=== PATIENT | male | born 1975 | race Caucasian/White ===

== ENCOUNTER 2023-12-22 12:06 | Observation (INO) | payer OTHER, SELFPAY ==
[2023-12-22] VITALS (8 sets, daily range): BP systolic 130–177; BP diastolic 82–114; PULSE 81–99; RESP 17–26; TEMP 36.3–36.9; O2SAT 89–97; BMI 20.3
--- NOTE | 2023-12-22 12:49 | EKG_ITS ---
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
--- NOTE | 2023-12-22 12:49 | DI.RAD.S_ITS ---
PROCEDURE: XR CHEST 1V INDICATIONS: Shortness of breath TECHNIQUE: One view of the chest was acquired. COMPARISON: None. FINDINGS: Surgical changes and devices: None. Lungs and pleura: There is severe diffuse basilar predominant interstitial/reticulonodular pulmonary opacity, of uncertain chronicity. No pleural effusions or pneumothorax. Mediastinum: Mediastinal contours appear normal. Heart size is normal. Bones and chest wall: No suspicious bony lesions. Overlying soft tissues appear unremarkable. IMPRESSION: Severe bilateral interstitial pulmonary opacity, consistent with edema and/or pneumonia superimposed on fibrosis. Dictated by: Jules Romero M.D. on 12/22/2023 at 13:33 Approved by: Jules Romero M.D. on 12/22/2023 at 13:34
[2023-12-22 13:26] LABS: Add Manual Diff / Slide Review NO; Basophils Absolute Auto 100 /uL (0-100); Basophils Percent Auto 0.7 % (0-2); Eosinophils Absolute Auto 100 /uL (0-450); Eosinophils Percent Auto 0.4 % (2-4); Hematocrit 50.6 % (41-53); Lymphocytes Absolute Auto 1400 /uL (1100-4500); Lymphocytes Percent Auto 12.6 % (25-40); Mean Corpuscular HGB Conc 33.5 % (30-36); Mean Corpuscular Hemoglobin 31.3 PG (26-34); Mean Corpuscular Volume 93.2 fL (80-100); Monocytes Absolute Auto 1200 /uL (0-900); Neutrophils Absolute Auto 8400 /uL (1500-7000); Neutrophils Percent Auto 75.3 % (50-75); Platelet Count 348 X10^3/uL (150-400); Red Blood Cell Count 5.43 X10^6/uL (4.5-5.9); Red Cell Distribution Width 14.4 % (11.6-14.8); White Blood Cell Count 11.2 X10^3/uL (4.5-11.0)
[2023-12-22 13:34] LABS: INR 1.2 (0.9-1.3)
[2023-12-22 13:37] LABS: Lactate (Lactic Acid) 1.7 mmol/L (0.7-2.1)
[2023-12-22 13:38] LABS: Alanine Aminotransferase 21 IU/L (<50); Albumin 3.3 g/dL (3.5-5.0); Albumin Globulin Ratio 1.2 (1.0-2.8); Alkaline Phosphatase 71 U/L (38-126); Aspartate Aminotransferase 25 IU/L (17-59); BUN Creatinine Ratio 14.3 (6-22); Bilirubin Total 0.9 mg/dL (0.2-1.3); Blood Urea Nitrogen 10 mg/dL (9-20); Calcium 8.6 mg/dL (8.4-10.2); Carbon Dioxide 28 mmol/L (22-32); Chloride 102 mmol/L (98-107); Estimated Glomerular Filt Rate > 60 mL/min (>60); Globulin 2.8 g/dL (1.7-4.1); Glucose 104 mg/dL (70-100); HEMOLYSIS 17 (0-50); Potassium 5.1 mmol/L (3.4-5.1); Sodium 135 mmol/L (137-145); Total Protein 6.1 g/dL (6.3-8.2)
[2023-12-22 13:49] LABS: NT-proBNP (BNP-Adult 18+) 3140 pg/mL (<125); Troponin I < 0.012 ng/mL (0.01-0.034)
[2023-12-22] MEDS: FUROSEMIDE 40 MG/4 ML VIAL IV (14:10)
--- NOTE | 2023-12-22 14:23 | ED.SOB ---
HPI - SOB/Dyspnea <Zandra May PA-C - Last Filed: 12/22/23 17:43> General Stated Complaint: SOB Time Seen by Provider: 12/22/23 12:59 Source: patient Mode of arrival: Ambulatory Limitations: no limitations History of Present Illness HPI Narrative: 48-year-old male with no reported past medical history presents to the ED with 2 years of worsening shortness of breath. Patient states he has not seen a doctor for the last 20 years, has noted onset of shortness of breath 2 years ago which has worsened gradually. Patient states that he went to an event in [place] 2 months ago, where he exerted himself more than usual and smoked more than usual which exacerbated his shortness of breath even further. Patient lives on [facility], states that it is expensive and difficult to get care which is why he has not seen a doctor so far. Patient is here with his who endorses that he has visibly worsened with respect to his shortness of breath. Patient denies chest pain, nausea, vomiting, abdominal pain, hematochezia, melena, dysuria, lightheadedness, dizziness, syncope. Patient does endorse an intermittent headache. Patient is a pack-a-day smoker for the last 28 years, states he has somewhat cut down over the last 2 years since his shortness of breath started. Cigarettes were hand rolled and unfiltered. Patient also consumes anywhere upwards of a six-pack of beer daily. Patient takes edible marijuana for sleep daily. No other drugs. 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 Related Data Home Medications Medication Instructions Recorded Confirmed No Known Home Medications 12/22/23 12/22/23 Allergies Allergy/AdvReac Type Severity Reaction Status Date / Time No Known Drug Allergies Allergy Verified 12/22/23 12:42 Review of Systems <Zandra May PA-C - Last Filed: 12/22/23 17:43> Constitutional Constitutional: Denies chills, Denies fatigue, Denies fever(s), Denies frequent falls, Reports headache(s), Denies lethargy and Denies weakness Eyes Eyes: Denies change in vision, Denies eye discharge, Denies irritation and Denies loss of vision ENT Ears, Nose, Mouth, and Throat: Denies change in voice, Denies dizziness, Reports headache(s), Denies neck pain, Denies sore throat and Denies throat swelling Cardiovascular Cardiovascular: Denies chest pain, Denies irregular heart rhythm, Denies lightheadedness, Denies palpitations, Reports dyspnea, Reports dyspnea on exertion and Denies orthopnea Respiratory Respiratory: Denies cough, Reports dyspnea, Reports dyspnea on exertion and Denies wheezing Gastrointestinal Gastrointestinal: Denies abdominal pain, Denies change in bowel habits, Denies diarrhea, Denies nausea and Denies vomiting Musculoskeletal Musculoskeletal: Denies neck pain and Denies numbness Integumentary/Breasts Skin/Breast: Denies pruritus, Denies erythema, Denies rash and Denies wounds Neurologic Neurologic: Denies behavioral changes, Denies confusion, Denies dizziness, Denies frequent falls, Reports headache(s), Denies loss of vision, Denies numbness and Denies weakness Psychiatric Psychiatric: Denies anxiety, Denies behavioral changes, Denies confusion, Denies depression, Denies homicidal ideation and Denies suicidal ideation Endocrine Endocrine: Denies fatigue, Denies flushing and Denies palpitations Hematologic/Lymphatic Hematologic/Lymphatic: Denies easy bruising Allergic/Immunologic Allergic/Immunologic: Denies urticaria, Denies throat swelling and Denies wheezing Patient History <Zandra May PA-C - Last Filed: 12/22/23 17:43> Social History household members: significant other Smoking Status: Former smoker alcohol intake: current Smoking Status: Current some day smoker tobacco type: cigarettes alcohol intake frequency: 3 or more drinks per day Alcohol type: beer Substance Use Type: marijuana Exam <Zandra May PA-C - Last Filed: 12/22/23 17:43> Narrative Exam Narrative: Const General:?cooperative, healthy appearing and comfortable [facility] Head:?normal to inspection Ears:?hearing grossly normal bilaterally Nose:?external nose normal Face and sinus:?normal facial exam and sinuses nontender Mouth:?oral mucosae normal Throat:?posterior oropharynx normal Eyes General:?appearance normal, both eyes and all related structures Neck Neck:?normal visual inspection and no lymphadenopathy noted Resp Effort & Inspection:? Patient appears to be short of breath while sitting and talking in the ED, with some effort of breathing Auscultation:?clear to auscultation bilaterally Cardio Rate:?regular rate Rhythm:?regular rhythm Lower Extremities with mild edema Neuro General:?patient alert, patient awake and patient oriented x3 Initial Vital Signs Initial Vital Signs: Vital Signs Temperature 98.5 F 12/22/23 12:43 Pulse Rate 99 H 12/22/23 12:43 Respiratory Rate 26 H 12/22/23 12:43 Blood Pressure 155/82 H 12/22/23 12:43 Pulse Oximetry 90 L 12/22/23 12:43 Oxygen Delivery Method Room Air 12/22/23 12:43 <Sara Magdaleno DO - Last Filed: 12/22/23 18:51> Initial Vital Signs Initial Vital Signs: Vital Signs Temperature 98.5 F 12/22/23 12:43 Pulse Rate 99 H 12/22/23 12:43 Respiratory Rate 26 H 12/22/23 12:43 Blood Pressure 155/82 H 12/22/23 12:43 Pulse Oximetry 90 L 12/22/23 12:43 Oxygen Delivery Method Room Air 12/22/23 12:43 Course <Zandra aMy PA-C - Last Filed: 12/22/23 17:43> Orders Ordered: ED Orders 12/22/23 12:49 XR chest 1V Stat EKG-12 Lead Stat Measure peak expiratory flow ONCE RT Consult Eval and Treat NOW 12/22/23 13:00 Complete Blood Count AUTO DIFF Stat Comprehensive Metabolic Panel Stat D Dimer Stat Lactate (Lactic Acid) Stat NT-proBNP (BNP-Adult 18+) Stat Prothrombin Time INR Stat Troponin I Stat 12/22/23 14:30 CT chest abd pel w con Stat 12/22/23 15:00 EC echo doppler complete Stat Acetaminophen (Acetaminophen 325 Mg Tablet) 650 mg PO Q6H PRN PRN Reason: Fever/Mild Pain (1-3) Al Hydrox/Mg Hydrox/Simethicone (Mag Hydrox/Alum/Simeth 30 Ml Udc) 30 ml PO Q6HR PRN PRN Reason: Dyspepsia Heparin Sodium (Porcine) (Heparin 5,000 Unit/Ml Vial) 5,000 unit SUBCUT BID KAYKAY Ibuprofen (Ibuprofen 600 Mg Tablet) 600 mg PO Q6HR PRN PRN Reason: Fever/Mild Pain (1-3) Naloxone HCl (Naloxone 0.4 Mg/Ml Vial) 0.2 mg IV Q2MIN PRN PRN Reason: Opiate Reversal Ondansetron HCl (Ondansetron 4 Mg/2 Ml Inj) 4 mg IV Q8HR PRN PRN Reason: Nausea And Vomiting Discontinued Medications Furosemide (Furosemide 40 Mg/4 Ml Vial) 40 mg IV NOW ONE Stop: 12/22/23 13:44 Last Admin: 12/22/23 14:10 Dose: 40 mg Documented By: AMAYA Vital Signs Vital signs: Vital Signs - 8 hr 12/22/23 12:43 12/22/23 13:10 12/22/23 13:36 Temperature 98.5 F Pulse Rate 99 H Respiratory Rate 26 H Blood Pressure 155/82 H Pulse Oximetry 90 L 89 L 92 Oxygen Delivery Method Room Air Room Air Nasal Cannula Oxygen Flow Rate 2 12/22/23 14:31 12/22/23 15:43 Temperature Pulse Rate 86 85 Respiratory Rate 20 22 Blood Pressure 147/89 H 177/84 H Pulse Oximetry 95 96 Oxygen Delivery Method Nasal Cannula Nasal Cannula Oxygen Flow Rate 3 4 <Sara Magdaleno, - Last Filed: 12/22/23 18:51> Orders Ordered: ED Orders 12/22/23 12:49 XR chest 1V Stat EKG-12 Lead Stat Measure peak expiratory flow ONCE RT Consult Eval and Treat NOW 12/22/23 13:00 Complete Blood Count AUTO DIFF Stat Comprehensive Metabolic Panel Stat D Dimer Stat Lactate (Lactic Acid) Stat NT-proBNP (BNP-Adult 18+) Stat Prothrombin Time INR Stat Troponin I Stat 12/22/23 14:30 CT chest abd pel w con Stat 12/22/23 15:00 EC echo doppler complete Stat Acetaminophen (Acetaminophen 325 Mg Tablet) 650 mg PO Q6H PRN PRN Reason: Fever/Mild Pain (1-3) Al Hydrox/Mg Hydrox/Simethicone (Mag Hydrox/Alum/Simeth 30 Ml Udc) 30 ml PO Q6HR PRN PRN Reason: Dyspepsia Heparin Sodium (Porcine) (Heparin 5,000 Unit/Ml Vial) 5,000 unit SUBCUT BID KAYKAY Ibuprofen (Ibuprofen 600 Mg Tablet) 600 mg PO Q6HR PRN PRN Reason: Fever/Mild Pain (1-3) Naloxone HCl (Naloxone 0.4 Mg/Ml Vial) 0.2 mg IV Q2MIN PRN PRN Reason: Opiate Reversal Ondansetron HCl (Ondansetron 4 Mg/2 Ml Inj) 4 mg IV Q8HR PRN PRN Reason: Nausea And Vomiting Discontinued Medications Furosemide (Furosemide 40 Mg/4 Ml Vial) 40 mg IV NOW ONE Stop: 12/22/23 13:44 Last Admin: 12/22/23 14:10 Dose: 40 mg Documented By: AMAYA Vital Signs Vital signs: Vital Signs - 8 hr 12/22/23 12:43 12/22/23 13:10 12/22/23 13:36 Temperature 98.5 F Pulse Rate 99 H Respiratory Rate 26 H Blood Pressure 155/82 H Pulse Oximetry 90 L 89 L 92 Oxygen Delivery Method Room Air Room Air Nasal Cannula Oxygen Flow Rate 2 12/22/23 14:31 12/22/23 15:43 Temperature Pulse Rate 86 85 Respiratory Rate 20 22 Blood Pressure 147/89 H 177/84 H Pulse Oximetry 95 96 Oxygen Delivery Method Nasal Cannula Nasal Cannula Oxygen Flow Rate 3 4 MDM - SOB/Dyspnea <Zandra May PA-C - Last Filed: 12/22/23 17:43> Lab Data 12/22/23 13:00 12/22/23 13:00 Labs: Lab Results 12/22/23 Range/Units 13:00 WBC 11.2 H (4.5-11.0) X10^3/uL RBC 5.43 (4.5-5.9) X10^6/uL Hgb 17.0 (13.5-17.5) g/dL Hct 50.6 (41-53) % MCV 93.2 (80-100) fL MCH 31.3 (26-34) PG MCHC 33.5 (30-36) % RDW 14.4 (11.6-14.8) % Plt Count 348 (150-400) X10^3/uL Neut % (Auto) 75.3 H (50-75) % Lymph % (Auto) 12.6 L (25-40) % Rankin % (Auto) 11.0 (3-14) % Eos % (Auto) 0.4 L (2-4) % Baso % (Auto) 0.7 (0-2) % Neut # (Auto) 8400 H (2697-5612) /uL Lymph # (Auto) 1400 (2156-0423) /uL Rankin # (Auto) 1200 H (0-900) /uL Eos # (Auto) 100 (0-450) /uL Baso # (Auto) 100 (0-100) /uL PT 14.0 H (9.4-12.5) SECONDS INR 1.2 (0.9-1.3) D-Dimer 1510 H (<500) ng/ml Sodium 135 L (137-145) mmol/L Potassium 5.1 (3.4-5.1) mmol/L Chloride 102 (98-107) mmol/L Carbon Dioxide 28 (22-32) mmol/L BUN 10 (9-20) mg/dL Creatinine 0.70 (0.66-1.25) mg/dL Estimated GFR > 60 (>60) mL/min BUN/Creatinine Ratio 14.3 (6-22) Glucose 104 H (70-100) mg/dL Lactate 1.7 (0.7-2.1) mmol/L Calcium 8.6 (8.4-10.2) mg/dL Total Bilirubin 0.9 (0.2-1.3) mg/dL AST 25 (17-59) IU/L ALT 21 (<50) IU/L Alkaline Phosphatase 71 (38-126) U/L Troponin I < 0.012 (0.01-0.034) ng/mL NT-Pro-B Natriuret Pep 3140 H (<125) pg/mL Total Protein 6.1 L (6.3-8.2) g/dL Albumin 3.3 L (3.5-5.0) g/dL Globulin 2.8 (1.7-4.1) g/dL Albumin/Globulin Ratio 1.2 (1.0-2.8) Urine Dip Bedside Urine Glucose Negative Bedside Urine Bilirubin - Negative Bedside Urine Ketone - Negative Urine Specific [place] 1.010 Bedside Urine Occult Blood - Negative Bedside Urine pH 6.5 Bedside Urine Protein - Negative Bedside Urine Urobilinogen - Negative Bedside Urine Nitrite - Negative Bedside Urine Leukocytes - Negative Esterase MDM Narrative Medical decision making narrative: 48-year-old male with no reported past medical history presents to the ED with 2 years of worsening shortness of breath. Concern for CHF versus pneumonia versus COPD versus emphysema versus PE versus URI versus other. Will obtain chest x-ray, EKG, labs, troponin, BNP, D-dimer. Troponin within normal limits. BNP elevated to 3140. All other labs unremarkable. Chest x-ray with severe bilateral interstitial pulmonary opacity, consistent with edema and/or or pneumonia superimposed on fibrosis. CT chest abdomen pelvis was obtained which shows severe pulmonary edema and small pleural effusions. 1.3 cm right adrenal nodule. Multiple sclerotic lesions throughout the spine and pelvis concerning for metastatic disease. No primary masses identified, although sclerotic lesions in his age group commonly caused by prostate cancer. Patient was started on 40 mg of Lasix IV. Patient put on 3 L of nasal cannula. Patient's SpO2 improved from the high 80s to low 90s to the high 90s with the oxygen and Lasix. An echocardiogram was also obtained, awaiting read. D-dimer elevated to 1510 could be related to malignancy. Consider CTPE. Big Data Developer Dr. Melton was consulted. Recommends admission, 40 mg Lasix IV b.i.d., Entresto 24-26 mg b.i.d. She would like to defer spironolactone and beta blockers at this time given that patient is decompensated. Hospitalist Dr. Chapman was consulted and he graciously accepts the patient for admission. Findings and plan discussed with patient and patient's . They verbalized understanding and are agreeable to the admission. <Sara Magdaleno, DO - Last Filed: 12/22/23 18:51> Lab Data Labs: Lab Results 12/22/23 Range/Units 13:00 WBC 11.2 H (4.5-11.0) X10^3/uL RBC 5.43 (4.5-5.9) X10^6/uL Hgb 17.0 (13.5-17.5) g/dL Hct 50.6 (41-53) % MCV 93.2 (80-100) fL MCH 31.3 (26-34) PG MCHC 33.5 (30-36) % RDW 14.4 (11.6-14.8) % Plt Count 348 (150-400) X10^3/uL Neut % (Auto) 75.3 H (50-75) % Lymph % (Auto) 12.6 L (25-40) % Rankin % (Auto) 11.0 (3-14) % Eos % (Auto) 0.4 L (2-4) % Baso % (Auto) 0.7 (0-2) % Neut # (Auto) 8400 H (1642-2222) /uL Lymph # (Auto) 1400 (0651-0881) /uL Rankin # (Auto) 1200 H (0-900) /uL Eos # (Auto) 100 (0-450) /uL Baso # (Auto) 100 (0-100) /uL PT 14.0 H (9.4-12.5) SECONDS INR 1.2 (0.9-1.3) D-Dimer 1510 H (<500) ng/ml Sodium 135 L (137-145) mmol/L Potassium 5.1 (3.4-5.1) mmol/L Chloride 102 (98-107) mmol/L Carbon Dioxide 28 (22-32) mmol/L BUN 10 (9-20) mg/dL Creatinine 0.70 (0.66-1.25) mg/dL Estimated GFR > 60 (>60) mL/min BUN/Creatinine Ratio 14.3 (6-22) Glucose 104 H (70-100) mg/dL Lactate 1.7 (0.7-2.1) mmol/L Calcium 8.6 (8.4-10.2) mg/dL Total Bilirubin 0.9 (0.2-1.3) mg/dL AST 25 (17-59) IU/L ALT 21 (<50) IU/L Alkaline Phosphatase 71 (38-126) U/L Troponin I < 0.012 (0.01-0.034) ng/mL NT-Pro-B Natriuret Pep 3140 H (<125) pg/mL Total Protein 6.1 L (6.3-8.2) g/dL Albumin 3.3 L (3.5-5.0) g/dL Globulin 2.8 (1.7-4.1) g/dL Albumin/Globulin Ratio 1.2 (1.0-2.8) Urine Dip Bedside Urine Glucose Negative Bedside Urine Bilirubin - Negative Bedside Urine Ketone - Negative Urine Specific [place] 1.010 Bedside Urine Occult Blood - Negative Bedside Urine pH 6.5 Bedside Urine Protein - Negative Bedside Urine Urobilinogen - Negative Bedside Urine Nitrite - Negative Bedside Urine Leukocytes - Negative Esterase ECG Data Attestation: I personally reviewed and interpreted this ECG as follows: Interpretation: Sinus rhythm rate 89 IL 150 QRS of 104 QTC 474, inverted T-waves in V1 through V3 no acute ST elevation. Discharge Plan Departure Patient Disposition: Admitted As Inpatient Clinical Impression: CHF (congestive heart failure) Qualifiers: Heart failure type: unspecified Heart failure chronicity: unspecified Qualified Code(s): I50.9 - Heart failure, unspecified Admit Date/Time: 12/22/23 15:48 Admit Provider: Alexander Chapman ED Sign-out <Sara Magdaleno DO - Last Filed: 12/22/23 18:51> Cosign ED Attending Cosignature Attestation: Patient was also seen and evaluated by myself patient was hypoxic, tachycardic, tachypneic, patient states he has had slowly worsening shortness of breath over some period of time that is worsened most recently. Was seen work of breathing had improved after O2. Workup was reviewed by myself. Patient appears to have CHF but also has changes consistent with malignancy with multiple sclerotic lesions throughout the spine and pelvis. Patient has small bilateral pleural effusions confluence centrilobular emphysema with superimposed bronchial thickening and smooth interstitial thickening with central mild ground-glass. Echo was ordered. Patient received O2, Lasix and was admitted to the hospitalist.
--- NOTE | 2023-12-22 14:30 | DI.CT.S_ITS ---
PROCEDURE: CT CHEST ABD PEL W CON INDICATIONS: SOB, abd pain TECHNIQUE: After the administration of intravenous contrast, 5 mm thick sections acquired from the lung apices to the symphysis. 5 mm coronal and sagittal reformats were performed, with additional 7 mm MIP reformats through the lungs. For radiation dose reduction, the following was used: automated exposure control, adjustment of mA and/or kV according to patient size. COMPARISON: None. FINDINGS: Image quality: Excellent. CHEST: Lower Neck: No enlarged lymph nodes. Thyroid: No thyroid nodules which require sonographic follow up, per consensus guidelines. Axillae: No enlarged lymph nodes. Chest Wall: Unremarkable. Lungs and Pleura: Small pleural effusions.. Confluent centrilobular emphysema. Superimposed bronchial thickening and smooth interstitial thickening with central mild ground-glass. Heart: Heart size is enlarged. No pericardial effusion. Thoracic Vessels: The aorta and pulmonary arteries demonstrate normal size. Mediastinum and Digna: No enlarged lymph nodes. Esophagus: No wall thickening. No hiatal hernia. ABDOMEN: Liver: Hepatomegaly. Gallbladder: Diffuse gallbladder wall thickening, likely due to cardiogenic factors. Gallbladder is contracted. Biliary ducts: No biliary dilation. Pancreas: No ductal dilation. Spleen: Size is within normal limits. Adrenal Glands: 1.3 centimeter right adrenal nodule. Kidneys and Ureters: No hydronephrosis. No solid mass. No complex renal cystic lesion which requires follow up. Stomach and Bowel: Normal colonic caliber, without significant wall thickening. Colonic diverticulosis without evidence of diverticulitis. Normal appendix. Peritoneum: No abnormal intraperitoneal fluid. No free air. Ventral Wall: No significant ventral hernia. Abdominal Nodes: No retroperitoneal or mesenteric adenopathy by size criteria. Vessels: Aorta and inferior vena cava are normal in size. PELVIS: Pelvic Organs: Unremarkable. Bladder: No bladder wall thickening, accounting for underdistention. Pelvic Nodes: No enlarged lymph nodes. Miscellaneous: No inguinal hernias are seen. Bones: Multiple dense bony lesions within the pelvis and spine. No soft tissue component. IMPRESSION: Severe pulmonary edema and small pleural effusions. 1.3 centimeter right adrenal nodule. Recommend dedicated outpatient CT or MRI for characterization (adrenal mass protocol). Multiple sclerotic lesions throughout the spine and pelvis, concerning for metastatic disease. Consider correlation with bone scintigraphy. No primary mass is identified, although sclerotic lesions in this age group are commonly caused by prostate cancer. Dictated by: Alvino oCle M.D. on 12/22/2023 at 14:47 Approved by: Alvino Cole M.D. on 12/22/2023 at 14:53
--- NOTE | 2023-12-22 15:00 | DI.ECHO.S_ITS ---
[facility] : : [address] : : [place] : : [id number] : : Phone: [phone] Echocardiogram Report + + :Name: JU [facility] Study Date: 12/22/2023 Height: 72 in : :Hospital ReadingLocation: Weight: 150 lb: : Gender: Male BSA: 1.9 m2 : :: 1975 Age: 48 yrs : :Reason For Study: NEW CONGESTIVE HEART FAILURE : :Ordering Physician: CURLY LAND Performed By: Martine Eason : :Referring: CURLY LAND : + + Interpretation Summary 1. The left ventricular contractility is mildly compromised. Estimated ejection fraction is approximately 45 to 50% with hypokinesis of the septum. No LVH. Grade 1 diastolic dysfunction. 2. The right ventricular contractility is moderately compromised. The interventricular septum appears to be mildly flattened suggestive of a pressure overloaded state. 3. There is right atrial and right ventricular enlargement. The left atrium and left ventricle are of normal size. 4. Mild to moderate tricuspid regurgitation noted with estimated pulmonary systolic artery pressure of 75 mmHg. 5. Trace to mild mitral regurgitation. 6. No obvious intracardiac shunts. 7. No obvious intracardiac masses nor thrombi. 8. No hemodynamically significant pericardial effusion. 9. Elevated right-sided filling pressures. Conclusion: Biventricular systolic dysfunction with severe pulmonary hypertension. Procedure: A two-dimensional transthoracic echocardiogram with color flow and Doppler was performed. The study quality was technically adequate. There is no prior echocardiogram noted for this patient. The patient was in sinus rhythm with heart rates between 84-92 bpm during the exam. Left Ventricle: The left ventricle is normal in size and wall thickness. The ejection fraction is estimated to be 45-50%. Right Ventricle: The right ventricle is severely dilated. Right ventricular systolic function is moderately reduced. Atria: The left atrial size is normal. The right atrium is mildly dilated. There is no Doppler evidence for an interatrial shunt. Mitral Valve: The mitral valve leaflets appear mildly thickened, but open well. There is borderline mitral valve prolapse. There is mild mitral regurgitation. Aortic Valve: The aortic valve is trileaflet. The aortic valve opens well. There is no aortic valve stenosis. No aortic regurgitation is present. Tricuspid Valve: The tricuspid valve leaflets are thin and pliable. There is mild to moderate tricuspid regurgitation. The right ventricular systolic pressure is estimated to be at least 75 mmHg based on an estimated right atrial pressure of 8 mm Hg. Pulmonic Valve: The pulmonic valve leaflets are thin and pliable; valve motion is normal. There is mild pulmonic regurgitation. Great Vessels: The aortic root is normal size. The dimensions of the ascending aorta are normal. The IVC is dilated (diameter is greater than 2.1 cm) yet it collapses greater than 50% with a sniff. This suggests a right atrial pressure of 8 mm Hg. Pericardium/ Pleura There is no pericardial effusion. There is no pleural effusion. MMode/2D Measurements & Calculations LVIDd: 4.6 cm LVOT diam: 2.2 cm LVIDs: 3.5 cm Ao root diam: 3.5 cm FS: 22.5 % asc Aorta Diam: 3.1 cm IVSd: 0.94 cm LVPWd: 0.84 cm LV avila. diameter/BSA (cm/m^2): 2.4 LV sys. diameter/BSA (cm/m^2): 1.9 LA A2 area: 13.6 cm2 RA long axis: 5.0 cm LA A4 area: 15.8 cm2 RA area: 19.3 cm2 LA length (vol): 5.1 cm RA vol: 63.0 ml LA vol: 35.8 ml RA : 33.4 ml/m2 LA vol index: 19.0 ml/m2 IVC diam: 2.2 cm RVDd major: 9.7 cm RVD1 (basal): 5.1 cm RVD2 (mid): 4.0 cm TAPSE: 1.7 cm Doppler Measurements & Calculations Ao V2 max: 96.1 cm/sec LVOT Max Scott: 78.4 cm/sec Ao V2 mean: 74.1 cm/sec LV V1 max P.5 mmHg Ao max P.7 mmHg LV V1 VTI: 13.0 cm Ao mean P.3 mmHg MARYLU(I,D): 3.0 cm2 Ao V2 VTI: 16.3 cm MARYLU(V,D): 3.1 cm2 sev ratio: 0.80 MARYLU indexed to BSA (cm^2/m^2): 1.6 MV E max scott: 62.4 cm/sec TR max scott: 409.6 cm/sec MV A max scott: 67.3 cm/sec TR max P.1 mmHg MV E/A: 0.93 PA V2 max: 92.5 cm/sec Med Peak E' Scott: 3.6 cm/sec PA V2 mean: 58.4 cm/sec E/E' med: 17.4 PA mean P.5 mmHg Lat Peak E' Scott: 8.4 cm/sec PA pr(Accel): 52.0 mmHg E/E' lat: 7.5 E/e' average: 12.4 MV dec time: 0.22 sec SV(LVOT): 49.4 ml Reading Physician:
[2023-12-22 15:46] LABS: D Dimer 1510 ng/ml (<500)
--- NOTE | 2023-12-22 15:56 | PM.HP.1 ---
History of Present Illness History of Present Illness Date Patient Seen: 12/22/23 Chief complaint: SOB Narrative: From ED provider: 48-year-old male with no reported past medical history presents to the ED with 2 years of worsening shortness of breath. Patient states he has not seen a doctor for the last 20 years, has noted onset of shortness of breath 2 years ago which has worsened gradually. Patient states that he went to an event in [place] 2 months ago, where he exerted himself more than usual and smoked more than usual which exacerbated his shortness of breath even further. Patient lives on [facility], states that it is expensive and difficult to get care which is why he has not seen a doctor so far. Patient is here with his who endorses that he has visibly worsened with respect to his shortness of breath. Patient denies chest pain, nausea, vomiting, abdominal pain, hematochezia, melena, dysuria, lightheadedness, dizziness, syncope. Patient does endorse an intermittent headache. Patient is a pack-a-day smoker for the last 28 years, states he has somewhat cut down over the last 2 years since his shortness of breath started. Cigarettes were hand rolled and unfiltered. Patient also consumes anywhere upwards of a six-pack of beer daily. Patient takes edible marijuana for sleep daily. No other drugs. 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 Additional information: He has a long history of smoking in his had subacute progression of his dyspnea on exertion for months to maybe even longer. He was not having any cough and not really having orthopnea. His primary symptoms are dyspnea on exertion. He was no leg edema either. He denies any chest pain with exertion. He drinks about 6 beers a day on the average, he smokes about a pack of cigarettes a day. The patient has not seen a doctor in about 20 years. He was found to have biventricular systolic dysfunction on an echo today and has evidence of severe pulmonary hypertension as well as a negative CT PA. He likely has a severe emphysema relating to his tobacco use. The patient was started on diuretics in the emergency department. He was an oximeter in his had readings in the 80s for the past several months intermittently. He denies any abdominal pain or weight loss. [facility] Social History household members: significant other Smoking Status: Former smoker alcohol intake: current Meds Home Medications and Allergies Home Medications Medication Instructions Recorded Confirmed Type No Known Home Medications 12/22/23 12/22/23 History Allergies Allergy/AdvReac Type Severity Reaction Status Date / Time No Known Drug Allergies Allergy Verified 12/22/23 12:42 Review of Systems Review of Systems Narrative: All else reviewed and otherwise unremarkable except as noted in the history and physical. Exam Vital Signs (past 8 hours): - 12/22/23 12:43 12/22/23 13:10 12/22/23 13:36 Temperature 98.5 F Pulse Rate 99 H Respiratory Rate 26 H Blood Pressure 155/82 H Pulse Oximetry 90 L 89 L 92 Oxygen Delivery Method Room Air Room Air Nasal Cannula Oxygen Flow Rate 2 12/22/23 14:31 12/22/23 15:43 Temperature Pulse Rate 86 85 Respiratory Rate 20 22 Blood Pressure 147/89 H 177/84 H Pulse Oximetry 95 96 Oxygen Delivery Method Nasal Cannula Nasal Cannula Oxygen Flow Rate 3 4 Oxygen Delivery Method Nasal Cannula Oxygen Flow Rate 4 Narrative Exam Narrative: NAD, alert and oriented, fluent speech, calm. Normocephalic skull, EOMI, anicteric sclera, symmetric pupils. Oropharynx unremarkable, no droop. Neck supple, midline trachea, no adenopathy. Lungs clear, normal rate and effort. He was globally diminished breath sounds. No overt wheezing. Veins are flat. Heart regular, no murmur gallop or rub. Abdomen is soft, non distended and non tender. Extremities are free of edema. Skin is free of rash or lesions. Joints are not swollen or deformed. Judgment appears to be normal. Objective ECG Impression: Normal sinus rhythm Possible Left atrial enlargement Incomplete right bundle branch block Right ventricular hypertrophy with repolarization abnormality Nonspecific T wave abnormality Prolonged QT Imaging Chest x-ray: Radiologist's impression: Severe bilateral interstitial pulmonary opacity, consistent with edema and/or pneumonia superimposed on fibrosis. CT scan - chest: Radiologist's impression: MPRESSION: Severe pulmonary edema and small pleural effusions. 1.3 centimeter right adrenal nodule. Recommend dedicated outpatient CT or MRI for characterization (adrenal mass protocol). Multiple sclerotic lesions throughout the spine and pelvis, concerning for metastatic disease. Consider correlation with bone scintigraphy. No primary mass is identified, although sclerotic lesions in this age group are commonly caused by prostate cancer. Echo: Radiologist's impression: 1. The left ventricular contractility is mildly compromised. Estimated ejection fraction is approximately 45 to 50% with hypokinesis of the septum. No LVH. Grade 1 diastolic dysfunction. 2. The right ventricular contractility is moderately compromised. The interventricular septum appears to be mildly flattened suggestive of a pressure overloaded state. 3. There is right atrial and right ventricular enlargement. The left atrium and left ventricle are of normal size. 4. Mild to moderate tricuspid regurgitation noted with estimated pulmonary systolic artery pressure of 75 mmHg. 5. Trace to mild mitral regurgitation. 6. No obvious intracardiac shunts. 7. No obvious intracardiac masses nor thrombi. 8. No hemodynamically significant pericardial effusion. 9. Elevated right-sided filling pressures. Conclusion: Biventricular systolic dysfunction with severe pulmonary hypertension. Labs 12/22/23 13:00 12/22/23 13:00 Labs: Laboratory Results - last 24 hr 12/22/23 13:00 WBC 11.2 H RBC 5.43 Hgb 17.0 Hct 50.6 MCV 93.2 MCH 31.3 MCHC 33.5 RDW 14.4 Plt Count 348 Neut % (Auto) 75.3 H Lymph % (Auto) 12.6 L [place] % (Auto) 11.0 Eos % (Auto) 0.4 L Baso % (Auto) 0.7 Neut # (Auto) 8400 H Lymph # (Auto) 1400 [place] # (Auto) 1200 H Eos # (Auto) 100 Baso # (Auto) 100 PT 14.0 H INR 1.2 D-Dimer 1510 H Sodium 135 L Potassium 5.1 Chloride 102 Carbon Dioxide 28 BUN 10 Creatinine 0.70 Estimated GFR > 60 BUN/Creatinine Ratio 14.3 Glucose 104 H Lactate 1.7 Calcium 8.6 Total Bilirubin 0.9 AST 25 ALT 21 Alkaline Phosphatase 71 Troponin I < 0.012 NT-Pro-B Natriuret Pep 3140 H Total Protein 6.1 L Albumin 3.3 L Globulin 2.8 Albumin/Globulin Ratio 1.2 Assessment & Plan Assessment & Plan narrative: 1. Acute CHF (biventricular systolic), present on admission and active. 2. Acute hypoxic respiratory failure, present on admission and active. 3. Sclerotic osseous lesions, present on admission and active. 4. Severe pulmonary hypertension, present on admission and active PLAN: -diurese with Lasix 40 IV q.12. -serial troponins. -echo. -screening PSA. -started Entresto. Full resuscitation. is proxy decision maker. Admitted as observation status, 1 night stay is anticipated. Time-Based Coding :: 40 min spent with patient and on the chart (including review of chart, obtaining history, exam, reviewing outside data, placing orders, documenting exam and treatment plan, and counseling patient) on 12/21. Quality MIPS - Admit I confirm the patient?s Advance Care Plan is present, Code status is documented, Surrogate decision maker is in patient?s record [If Yes, STOP here]: Yes MIPS - Meds 'Current medications' to include all prescriptions, [id number] products, herbals, cannabis/cannabidiol products, and vitamin/mineral/dietary (nutritional) supplements. I have utilized all available resources to obtain, update, or review the patient?s current medications. [If Yes, STOP here]: Yes
[2023-12-22 17:10] LABS: Troponin I 0.016 ng/mL (0.01-0.034)
[2023-12-22] MEDS: IBUPROFEN 600 MG TABLET PO (18:52)
[2023-12-22] MEDS: HEPARIN 5,000 UNIT/ML VIAL 5000 UNIT SUBCUT (21:53)
[2023-12-23] VITALS (9 sets, daily range): BP systolic 97–136; BP diastolic 70–88; PULSE 75–88; RESP 16–19; TEMP 36.2–36.6; O2SAT 91–97
[2023-12-23] MEDS: IBUPROFEN 600 MG TABLET PO ×3 (03:25→17:27)
[2023-12-23 06:12] LABS: Add Manual Diff / Slide Review NO; Basophils Absolute Auto 100 /uL (0-100); Basophils Percent Auto 0.6 % (0-2); Eosinophils Absolute Auto 100 /uL (0-450); Eosinophils Percent Auto 0.9 % (2-4); Hematocrit 50.3 % (41-53); Lymphocytes Absolute Auto 1400 /uL (1100-4500); Lymphocytes Percent Auto 12.6 % (25-40); Mean Corpuscular HGB Conc 33.7 % (30-36); Mean Corpuscular Hemoglobin 31.5 PG (26-34); Mean Corpuscular Volume 93.5 fL (80-100); Monocytes Absolute Auto 900 /uL (0-900); Monocytes Percent Auto 7.8 % (3-14); Neutrophils Absolute Auto 8900 /uL (1500-7000); Neutrophils Percent Auto 78.1 % (50-75); Platelet Count 328 X10^3/uL (150-400); Red Blood Cell Count 5.38 X10^6/uL (4.5-5.9); White Blood Cell Count 11.4 X10^3/uL (4.5-11.0)
[2023-12-23 06:34] LABS: BUN Creatinine Ratio 13.6 (6-22); Blood Urea Nitrogen 11 mg/dL (9-20); Calcium 8.3 mg/dL (8.4-10.2); Carbon Dioxide 33 mmol/L (22-32); Chloride 99 mmol/L (98-107); Estimated Glomerular Filt Rate > 60 mL/min (>60); Glucose 120 mg/dL (70-100); HEMOLYSIS < 15 (0-50); Potassium 4.2 mmol/L (3.4-5.1); Sodium 134 mmol/L (137-145)
[2023-12-23] MEDS: FUROSEMIDE 40 MG/4 ML VIAL IV ×2 (08:28→13:56)
[2023-12-23] MEDS: HEPARIN 5,000 UNIT/ML VIAL 5000 UNIT SUBCUT ×2 (08:28→20:49)
--- NOTE | 2023-12-23 10:53 | DI.CT.S_ITS ---
PROCEDURE: CT CERVICAL SPINE WO CON INDICATIONS: Neck pain and possible bone mets TECHNIQUE: Noncontrast 3 mm thick sections acquired from the skull base to the T4 level. Sagittal and coronal reformats were then constructed. For radiation dose reduction, the following was used: automated exposure control, adjustment of mA and/or kV according to patient size. COMPARISON: [facility], CT, CT CHEST ABD PEL W CON, 12/22/2023, 13:46. [facility], CT, CT HEAD/BRAIN WO CON, 12/23/2023, 11:14. FINDINGS: Image quality: Excellent. Bones: No fractures or dislocations. Visualized superior ribs are intact. Bony sclerosis can be seen involving there is of the visualized calvarium as well as the C4 vertebral body. Underlying degenerative changes are seen. Soft tissues: Prevertebral soft tissues are normal in thickness. No paravertebral hematomas. No apical pneumothoraces. IMPRESSION: Bony sclerosis can be seen, most notably within the C4 vertebral body. The appearance is suspicious for metastatic disease. Dictated by: Walter Duffy M.D. on 12/23/2023 at 10:35 Approved by: Walter Duffy M.D. on 12/23/2023 at 10:36
--- NOTE | 2023-12-23 10:53 | DI.CT.S_ITS ---
PROCEDURE: CT HEAD/BRAIN WO CON INDICATIONS: headache TECHNIQUE: Noncontrast 4.5 mm thick angled axial sections acquired from the foramen magnum to the vertex, with coronal and sagittal reformats. For radiation dose reduction, the following was used: automated exposure control, adjustment of mA and/or kV according to patient size. COMPARISON: [facility], CT, CT CERVICAL SPINE WO CON, 12/23/2023, 11:14. FINDINGS: Image quality: Diagnostic. CSF spaces: Basal cisterns are patent. There is an arachnoid cyst seen along the posterior aspect of the posterior fossa. Ventricles are normal in size and shape. Brain: No midline shift. No intracranial masses or hemorrhage. Rivas-white matter interface is normal. Skull and face: General areas of abnormal bony sclerosis can be seen involving the calvarium. Calvarium and visualized facial bones are intact, without suspicious lesions. Sinuses: Mild mucosal thickening can be seen within the sphenoid sinuses. Minimal mucosal thickening can be seen elsewhere within the paranasal sinuses. IMPRESSION: Several areas of bony sclerosis can be seen involving the calvarium, which are highly suspicious for metastatic disease. To the limits of this noncontrast study, no findings of intracranial masses or mass effect can be seen. No acute intracranial hemorrhage is seen. Focal sphenoid sinus disease noted. Dictated by: Walter Duffy M.D. on 12/23/2023 at 10:31 Approved by: Walter Duffy M.D. on 12/23/2023 at 10:32
--- NOTE | 2023-12-23 10:54 | PM.PN.1 ---
Subjective Subjective Interval history: S: His breathing feels little bit better today. He has a headache for which has been ongoing for 10 days and a lot of neck pain and stiffness. This is relatively unusual for him. No leg edema. PSA is pending. Exam Vital Signs (past 8 hours): - 12/23/23 05:30 12/23/23 09:35 Temperature 97.6 F Pulse Rate 77 Respiratory Rate 17 Blood Pressure 136/88 Pulse Oximetry 97 92 Oxygen Flow Rate 1.5 1 Oxygen Delivery Method Nasal Cannula Oxygen Flow Rate 1 Narrative Exam Narrative: NAD, alert and oriented. Fluent speech. Lungs are clear, normal rate and effort. Heart is regular, no murmur gallop or rub. Abdomen is soft, non distended. Extremities are free of edema. Objective Imaging Echo: Radiologist's impression: Interpretation Summary 1. The left ventricular contractility is mildly compromised. Estimated ejection fraction is approximately 45 to 50% with hypokinesis of the septum. No LVH. Grade 1 diastolic dysfunction. 2. The right ventricular contractility is moderately compromised. The interventricular septum appears to be mildly flattened suggestive of a pressure overloaded state. 3. There is right atrial and right ventricular enlargement. The left atrium and left ventricle are of normal size. 4. Mild to moderate tricuspid regurgitation noted with estimated pulmonary systolic artery pressure of 75 mmHg. 5. Trace to mild mitral regurgitation. 6. No obvious intracardiac shunts. 7. No obvious intracardiac masses nor thrombi. 8. No hemodynamically significant pericardial effusion. 9. Elevated right-sided filling pressures. Conclusion: Biventricular systolic dysfunction with severe pulmonary hypertension. Labs 12/23/23 05:21 12/23/23 05:21 Labs: Laboratory Results - last 24 hr 12/22/23 12/22/23 12/23/23 13:00 16:30 05:21 WBC 11.2 H 11.4 H RBC 5.43 5.38 Hgb 17.0 17.0 Hct 50.6 50.3 MCV 93.2 93.5 MCH 31.3 31.5 MCHC 33.5 33.7 RDW 14.4 14.0 Plt Count 348 328 Neut % (Auto) 75.3 H 78.1 H Lymph % (Auto) 12.6 L 12.6 L [place] % (Auto) 11.0 7.8 Eos % (Auto) 0.4 L 0.9 L Baso % (Auto) 0.7 0.6 Neut # (Auto) 8400 H 8900 H Lymph # (Auto) 1400 1400 [place] # (Auto) 1200 H 900 Eos # (Auto) 100 100 Baso # (Auto) 100 100 PT 14.0 H INR 1.2 D-Dimer 1510 H Sodium 135 L 134 L Potassium 5.1 4.2 Chloride 102 99 Carbon Dioxide 28 33 H BUN 10 11 Creatinine 0.70 0.81 Estimated GFR > 60 > 60 BUN/Creatinine Ratio 14.3 13.6 Glucose 104 H 120 H Lactate 1.7 Calcium 8.6 8.3 L Total Bilirubin 0.9 AST 25 ALT 21 Alkaline Phosphatase 71 Troponin I < 0.012 0.016 NT-Pro-B Natriuret Pep 3140 H Total Protein 6.1 L Albumin 3.3 L Globulin 2.8 Albumin/Globulin Ratio 1.2 PFSH Social History household members: significant other Smoking Status: Former smoker alcohol intake: current Assessment & Plan Assessment & Plan narrative: 1. Acute CHF (biventricular systolic), present on admission and active. 2. Acute hypoxic respiratory failure, present on admission and active. 3. Sclerotic osseous lesions, present on admission and active. 4. Severe pulmonary hypertension, present on admission and active 5. Subacute neck pain and headache, which is relatively new and unusual for him. Present on admission and active. PLAN: -continue diuresis, start CELSO inhibitor. Start beta nikhil. -awaiting PSA results. -CT cervical spine, reason as neck pain and possible bony Mets. -CT brain, reason is headache and possible Mets. JULIANN is December 23. Likely home. Time-Based Coding :: [TOTAL MINUTES] spent with patient and on the chart (including review of chart, obtaining history, exam, reviewing outside data, placing orders, documenting exam and treatment plan, and counseling patient) on [DATE]. Quality VTE Deep Vein Thrombosis/Pulmonary Embolism Present on Admission: No
--- NOTE | 2023-12-23 14:35 | CM.DANOTE ---
DCP Assessment note pt is a 48yo M here under the care of the hospitalist team under OBS status, is SOB. PCP Hasn't been to a doctor in 20years. [employer] provided list of PCPs that take his ins and accepting new pts. Payer [employer] and self pay [employer] reviewed EMR. Per chart, likely to dc tomorrow. breathing better today. [employer] IN[employer]CTOR met with pt in room. Confirms lives with spouse Odilia on [facility]. is normal indep at baseline. Appreciate list of PCPs on [place]. Does not want to dc home with oxygen. Inquired about medical boarding pass, report will attempt to get reservation when dc date is known but if unable to get res is hopeful for boarding pass. CM agreed to f/u with pt tomorrow on boarding pass need. Pt claims has ID with him. P: anticipate home tomorrow with spouse to transport. f/u for boarding pass need. OP f/u with new PCP recommended. CM team will continue to follow as needed GIRISH Pittman Discharge Planning/Care Management CM Discharge Assessment Start: 12/23/23 14:34 Freq: Status: Active Protocol: Document 12/23/23 14:34 (Rec: 12/23/23 14:35 [id number]) Discharge Planning Assessment Assigned Exhibit Builder GIRISH Menendez DPOA/Assigned Designee Name aldair Hartley Contact Information [phone] Advance Directives? No History Provided By Patient Prior Living Arrangements House Household Members significant other Type of transporation used prior to Drives own vehicle admit Independent with ADL's Yes Is patient alert and oriented? Yes Discharge Plan Home Transportation Arrangement spouse in POV Referrals Initiated None needed Review Status In Process Please Provide Date Initial DC 12/23/23 Assessment Was Performed Next Review Type Continued Stay Review
[2023-12-24] VITALS: BP 140/86; PULSE 75; RESP 19; TEMP 36.2; O2SAT 95
[2023-12-24] MEDS: IBUPROFEN 600 MG TABLET PO ×2 (00:13→08:18)
[2023-12-24] MEDS: FUROSEMIDE 40 MG/4 ML VIAL IV ×2 (00:22→12:34)
[2023-12-24 04:00] VITALS: BP 135/95; PULSE 77; RESP 18; TEMP 36.4; O2SAT 89
[2023-12-24 05:23] LABS: Add Manual Diff / Slide Review NO; Basophils Absolute Auto 100 /uL (0-100); Basophils Percent Auto 1.2 % (0-2); Eosinophils Absolute Auto 200 /uL (0-450); Eosinophils Percent Auto 1.8 % (2-4); Hematocrit 54.2 % (41-53); Hemoglobin 18.2 g/dL (13.5-17.5); Lymphocytes Absolute Auto 2100 /uL (1100-4500); Lymphocytes Percent Auto 20.6 % (25-40); Mean Corpuscular HGB Conc 33.5 % (30-36); Mean Corpuscular Hemoglobin 31.2 PG (26-34); Mean Corpuscular Volume 93.1 fL (80-100); Monocytes Absolute Auto 1300 /uL (0-900); Monocytes Percent Auto 12.9 % (3-14); Neutrophils Absolute Auto 6500 /uL (1500-7000); Neutrophils Percent Auto 63.5 % (50-75); Platelet Count 352 X10^3/uL (150-400); Red Blood Cell Count 5.82 X10^6/uL (4.5-5.9); Red Cell Distribution Width 14.2 % (11.6-14.8); White Blood Cell Count 10.3 X10^3/uL (4.5-11.0)
[2023-12-24 05:51] LABS: BUN Creatinine Ratio 18.8 (6-22); Blood Urea Nitrogen 16 mg/dL (9-20); Calcium 8.6 mg/dL (8.4-10.2); Carbon Dioxide 36 mmol/L (22-32); Chloride 96 mmol/L (98-107); Estimated Glomerular Filt Rate > 60 mL/min (>60); Glucose 95 mg/dL (70-100); Sodium 134 mmol/L (137-145)
[2023-12-24 05:52] LABS: HEMOLYSIS 15 (0-50); Potassium 3.7 mmol/L (3.4-5.1)
[2023-12-24 07:00] VITALS: O2SAT 94
[2023-12-24 08:00] VITALS: BP 96/47; PULSE 74; RESP 10; TEMP 36; O2SAT 97
[2023-12-24] MEDS: HEPARIN 5,000 UNIT/ML VIAL 5000 UNIT SUBCUT (08:18)
--- NOTE | 2023-12-24 11:48 | P.DS_ITS ---
History of Present Illness History of Present Illness Chief complaint: SOB Narrative: From ED provider: 48-year-old male with no reported past medical history presents to the ED with 2 years of worsening shortness of breath. Patient states he has not seen a doctor for the last 20 years, has noted onset of shortness of breath 2 years ago which has worsened gradually. Patient states that he went to an event in [place] 2 months ago, where he exerted himself more than usual and smoked more than usual which exacerbated his shortness of breath even further. Patient lives on [facility], states that it is expensive and difficult to get care which is why he has not seen a doctor so far. Patient is here with his who endorses that he has visibly worsened with respect to his shortness of breath. Patient denies chest pain, nausea, vomiting, abdominal pain, hematochezia, melena, dysuria, lightheadedness, dizziness, syncope. Patient does endorse an intermittent headache. Patient is a pack-a-day smoker for the last 28 years, states he has somewhat cut down over the last 2 years since his shortness of breath started. Cigarettes were hand rolled and unfiltered. Patient also consumes anywhere upwards of a six-pack of beer daily. Patient takes edible marijuana for sleep daily. No other drugs. 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 Additional information: He has a long history of smoking in his had subacute progression of his dyspnea on exertion for months to maybe even longer. He was not having any cough and not really having orthopnea. His primary symptoms are dyspnea on exertion. He was no leg edema either. He denies any chest pain with exertion. He drinks about 6 beers a day on the average, he smokes about a pack of cigarettes a day. The patient has not seen a doctor in about 20 years. He was found to have biventricular systolic dysfunction on an echo today and has evidence of severe pulmonary hypertension as well as a negative CT PA. He likely has a severe emphysema relating to his tobacco use. The patient was started on diuretics in the emergency department. He was an oximeter in his had readings in the 80s for the past several months intermittently. He denies any abdominal pain or weight loss. Discharge Providers Provider Date of admission: 12/22/23 15:48 Discharge Date: 12/24/23 Primary care physician: Imelda Ortez Consults: None Discharge provider: Alexander Chapman MD Summary Hospital Course Discharge Diagnosis: 1. Acute CHF (biventricular systolic), present on admission and active. 2. Acute hypoxic respiratory failure, present on admission and active. 3. Sclerotic osseous lesions (calvarium, C4, spine, and pelvis), present on admission and active. 4. Severe pulmonary hypertension, present on admission and active 5. Subacute neck pain and headache (C4 bony lesions), which is relatively new and unusual for him. Present on admission and active. 6. COPD, present on admission and active. Hospital Course: This is an unfortunate gentleman who presented with a leg edema and dyspnea that had been ongoing and progressive for several weeks. Initial imaging was concerning for heart failure with pulmonary edema as well as sclerotic bone lesions. He was not been seen by a physician in some time. The patient was diuresed in his echo revealed systolic heart failure as well as severe pulmonary hypertension which likely relates to his many years of smoking. In addition he was sclerotic lesions in his pelvis and spine as well as C4 and his calvarium on a brain CT. The patient has had some migrating pain but pain control was not a major issue while in the hospital. He was diuresed and his breathing and oxygenation did improve to the point that he was felt to be reasonably stable for discharge on oxygen. He was a PSA pending, with a high suspicion for metastatic prostate cancer. The plan was to discharge him home on medical therapy for heart failure, stay in phone contact as the PSA results, follow up and initiation in clinic on [facility] with NORBERTO Valente, on Thursday, and then arrange referral for Oncology once the PSA is back. Status at Discharge Cognitive/behavioral status at discharge: oriented Functional status at discharge: independent ambulation Overall status at discharge: patient is back to baseline Time Spent with Patient Time spent: Greater than 30 minutes Exam Vital Signs (past 8 hours): - 12/24/23 04:00 12/24/23 07:00 12/24/23 07:00 Temperature 97.6 F Pulse Rate 77 Respiratory Rate 18 Blood Pressure 135/95 H Pulse Oximetry 89 L 94 Oxygen Delivery Method Room Air Room Air Oxygen Flow Rate 0 08/01/24 08:00 Temperature 96.8 F L Pulse Rate 74 Respiratory Rate 10 L Blood Pressure 96/47 L Pulse Oximetry 97 Oxygen Delivery Method Oxygen Flow Rate 0 Fraction of Inspired Oxygen 24 SaO2/FiO2 Ratio 395 Oxygen Delivery Method Room Air Oxygen Flow Rate 0 Narrative Exam Narrative: NAD, alert and oriented. Fluent speech. Lungs are clear, normal rate and effort. Heart is regular, no murmur gallop or rub. Abdomen is soft, non distended. Extremities are free of edema. Objective ECG Impression: Normal sinus rhythm Possible Left atrial enlargement Incomplete right bundle branch block Right ventricular hypertrophy with repolarization abnormality Nonspecific T wave abnormality Prolonged QT Imaging Multiple studies:: Radiologist's impression: Head CT: Several areas of bony sclerosis can be seen involving the calvarium, which are highly suspicious for metastatic disease. To the limits of this noncontrast study, no findings of intracranial masses or mass effect can be seen. No acute intracranial hemorrhage is seen. Focal sphenoid sinus disease noted. Cervical spine CT: Bony sclerosis can be seen, most notably within the C4 vertebral body. The appearance is suspicious for metastatic disease. Chest x-ray: Radiologist's impression: Severe bilateral interstitial pulmonary opacity, consistent with edema and/or pneumonia superimposed on fibrosis. CT scan - chest: Radiologist's impression: IMPRESSION: Severe pulmonary edema and small pleural effusions. 1.3 centimeter right adrenal nodule. Recommend dedicated outpatient CT or MRI for characterization (adrenal mass protocol). Multiple sclerotic lesions throughout the spine and pelvis, concerning for metastatic disease. Consider correlation with bone scintigraphy. No primary mass is identified, although sclerotic lesions in this age group are commonly caused by prostate cancer. Echo: Radiologist's impression: 1. The left ventricular contractility is mildly compromised. Estimated ejection fraction is approximately 45 to 50% with hypokinesis of the septum. No LVH. Grade 1 diastolic dysfunction. 2. The right ventricular contractility is moderately compromised. The interventricular septum appears to be mildly flattened suggestive of a pressure overloaded state. 3. There is right atrial and right ventricular enlargement. The left atrium and left ventricle are of normal size. 4. Mild to moderate tricuspid regurgitation noted with estimated pulmonary systolic artery pressure of 75 mmHg. 5. Trace to mild mitral regurgitation. 6. No obvious intracardiac shunts. 7. No obvious intracardiac masses nor thrombi. 8. No hemodynamically significant pericardial effusion. 9. Elevated right-sided filling pressures. Conclusion: Biventricular systolic dysfunction with severe pulmonary hypertension. Labs 12/24/23 04:53 12/24/23 04:53 Labs: Laboratory Results - last 24 hr 12/24/23 04:53 WBC 10.3 RBC 5.82 Hgb 18.2 H Hct 54.2 H MCV 93.1 MCH 31.2 MCHC 33.5 RDW 14.2 Plt Count 352 Neut % (Auto) 63.5 Lymph % (Auto) 20.6 L Henderson % (Auto) 12.9 Eos % (Auto) 1.8 L Baso % (Auto) 1.2 Neut # (Auto) 6500 Lymph # (Auto) 2100 Henderson # (Auto) 1300 H Eos # (Auto) 200 Baso # (Auto) 100 Sodium 134 L Potassium 3.7 Chloride 96 L Carbon Dioxide 36 H BUN 16 Creatinine 0.85 Estimated GFR > 60 BUN/Creatinine Ratio 18.8 Glucose 95 Calcium 8.6 PFSH Social History household members: significant other Smoking Status: Former smoker alcohol intake: current Discharge Assessment & Plan Assessment and Plan Assessment: 1. Acute CHF (biventricular systolic), present on admission and active. 2. Acute hypoxic respiratory failure, present on admission and active. 3. Sclerotic osseous lesions (calvarium, C4, spine, and pelvis), present on admission and active. 4. Severe pulmonary hypertension, present on admission and active 5. Subacute neck pain and headache (C4 bony lesions), which is relatively new and unusual for him. Present on admission and active. 6. COPD, present on admission and active. Plan of Treatment: Discharge home with CHF medications, telephone FU, PSA pending, PCP appt Thursday, and oncology referral when PSA resulted. Discharge Plan Discharge Plan Patient Disposition: Home Provider Discharge Comment: Stable for discharge home with close follow up and PSA results are pending. We will help arrange follow up with Oncology by staying in touch with primary care. Discharge orders & Medications Prescriptions: New furosemide [Lasix] 20 mg tablet 20 mg PO DAILY Qty: 30 2RF metoprolol succinate 25 mg tablet extended release 24 hr 12.5 mg PO DAILY Qty: 30 2RF lisinopril 2.5 mg tablet 2.5 mg PO DAILY Qty: 30 2RF potassium chloride 10 mEq capsule, extended release 10 meq PO DAILY Qty: 30 2RF Spiriva Respimat 1.25 mcg/actuation mist 2 puff inhalation DAILY Qty: 4 2RF Discharge Health Status Multidrug resistant organism: No MDRO Diet/Activity/Treatments Diet: Low-sodium Visit Report/Discharge Packet Instructions: DI for Heart Failure, DI for Chronic Obstructive Pulmonary Disease, Furosemide, Metoprolol, Lisinopril Stand Alone Forms: Patient Portal/API Discharge Data Attending Provider: Alexander Chapman Admit Date/Time: 12/22/23 15:48 Quality VTE Deep Vein Thrombosis/Pulmonary Embolism Present on Admission: No MIPS - DC The patient has a history of heart transplant or Left Ventricular Assist Device (LVAD). If yes, STOP here.: No The patient has current or prior documentation of left ventricular ejection fraction (LVEF) less than or equal to 40%, or moderate or severely depressed left ventricular systolic function.: Yes A. The patient was prescribed or already taking an Angiotensin-Converting Enzyme (CELSO) Inhibitor, or Angiotensin Receptor Vaishali (ARB).: Yes B. The patient was prescribed or already taking a beta-vaishali. [If Yes to Both A & B, STOP here]: Yes
--- NOTE | 2023-12-24 11:59 | CM.DPNOTE ---
DC Note Patient discharged home today w/spouse.Close outpatient follow up recommended. Patient [place] not have a ferry reservation so completed a priority board pass for the [place] route. No addtl needs from this CM team. JW
[2023-12-24 12:00] VITALS: BP 129/88; PULSE 82; RESP 16; TEMP 36.7; O2SAT 93
[2023-12-25 14:43] LABS: Albumin 2.9 g/dL (2.9-4.4); Alpha-1-Globulin 0.3 g/dL (0.0-0.4); Alpha-2-Globulin 0.6 g/dL (0.4-1.0); Gamma Globulin 1.2 g/dL (0.4-1.8); Globulin Total 2.9 g/dL (2.2-3.9); Protein, Total 5.8 g/dL (6.0-8.5)
[2023-12-25 20:08] LABS: PSA Free % 37.1 % (.); PSA, Total 0.7 ng/mL (0.0-4.0)
== END 2023-12-24 14:00 | disposition home or self-care (01) ==
LOC: ED 15:48 → AC 12-23 08:47
PROVIDERS: Emergency Medicine; Admitting Provider Hospitalist; Emergency Provider Student in an Organized Health Care Education/Training Program; Referring Provider Student in an Organized Health Care Education/Training Program; Visit Provider Hospitalist
DX: I50.21 Acute systolic (congestive) heart failure (principal); J96.01 Acute respiratory failure with hypoxia; J44.9 Chronic obstructive pulmonary disease, unspecified; F17.210 Nicotine dependence, cigarettes, uncomplicated; R51.9 Headache, unspecified; I27.20 Pulmonary hypertension, unspecified; M89.9 Disorder of bone, unspecified
CPT/HCPCS: 36415; 70450; 71045; 71260; 72125; 74177; 80048; 80053; 81003; 83605; 83880; 84153; 84154; 84155; 84165; 84484; 85025; 85379; 85610; 93005; 93306; 94760; 96372; 96374; 96376; 99285; G0378; J1644; J1940; Q9967

== ENCOUNTER → 2024-01-07 10:54 | Outpatient (CLI) | payer OTHER, SELFPAY ==
[2023-12-22 15:49] VITALS: BMI 20.3
[2024-01-07 19:57] LABS: INR 1.2 (0.9-1.3); Prothrombin Time 13.4 SECONDS (9.4-12.5)
[2024-01-07 20:15] LABS: Platelet Count 409 X10^3/uL (150-400)
[2024-01-07 20:27] LABS: Alanine Aminotransferase 22 IU/L (<50); Albumin 3.3 g/dL (3.5-5.0); Albumin Globulin Ratio 1.1 (1.0-2.8); Alkaline Phosphatase 80 U/L (38-126); Aspartate Aminotransferase 24 IU/L (17-59); BUN Creatinine Ratio 21.2 (6-22); Bilirubin Total 1.4 mg/dL (0.2-1.3); Blood Urea Nitrogen 14 mg/dL (9-20); Calcium 9.3 mg/dL (8.4-10.2); Carbon Dioxide 29 mmol/L (22-32); Chloride 100 mmol/L (98-107); Cholesterol 154 mg/dL (140-199); Estimated Glomerular Filt Rate > 60 mL/min (>60); Globulin 2.9 g/dL (1.7-4.1); Glucose 102 mg/dL (70-100); HDL Cholesterol 42 mg/dL (40-60); HEMOLYSIS < 15 (0-50); LDL Cholesterol Calculated 99 mg/dL (<100); Potassium 4.8 mmol/L (3.4-5.1); Sodium 132 mmol/L (137-145); Total Protein 6.2 g/dL (6.3-8.2); Triglycerides 64 mg/dL (35-150)
[2024-01-07 21:48] LABS: TSH w/ Reflex to FT4 3.32 uIU/mL (0.47-4.68)
== END ==
PROVIDERS: PCP Physician Assistant; Referring Provider Physician Assistant; Visit Provider Physician Assistant
DX: Z13.6 Encounter for screening for cardiovascular disorders (principal); Z79.899 Other long term (current) drug therapy; J43.8 Other emphysema; I50.9 Heart failure, unspecified; D49.2 Neoplasm of unspecified behavior of bone, soft tissue, and skin
CPT/HCPCS: 80053; 80061; 84443; 85049; 85610

== ENCOUNTER → 2024-01-11 11:18 | Outpatient (CLI) | payer OTHER, SELFPAY ==
[2023-12-22 15:49] VITALS: BMI 20.3
[2024-01-11 12:09] LABS: Platelet Count 406 X10^3/uL (150-400)
[2024-01-11 12:40] LABS: Prothrombin Time 11.6 SECONDS (9.4-12.5)
[2024-01-11 12:43] LABS: PTT Partial Thromboplastin Tim 28 SECONDS (25.1-36.5)
[2024-01-11 12:50] LABS: Alanine Aminotransferase 21 IU/L (<50); Albumin 3.3 g/dL (3.5-5.0); Albumin Globulin Ratio 1.2 (1.0-2.8); Alkaline Phosphatase 71 U/L (38-126); Aspartate Aminotransferase 18 IU/L (17-59); BUN Creatinine Ratio 24.2 (6-22); Bilirubin Total 0.8 mg/dL (0.2-1.3); Blood Urea Nitrogen 16 mg/dL (9-20); Calcium 9.3 mg/dL (8.4-10.2); Carbon Dioxide 27 mmol/L (22-32); Chloride 100 mmol/L (98-107); Estimated Glomerular Filt Rate > 60 mL/min (>60); Globulin 2.7 g/dL (1.7-4.1); Glucose 107 mg/dL (70-100); HEMOLYSIS < 15 (0-50); Potassium 4.5 mmol/L (3.4-5.1); Sodium 132 mmol/L (137-145)
== END ==
LOC: LAB 11:22
PROVIDERS: Radiology Neuroradiology; PCP Physician Assistant; Referring Provider Physician Assistant; Visit Provider Physician Assistant
DX: M89.9 Disorder of bone, unspecified (principal); Z79.899 Other long term (current) drug therapy
CPT/HCPCS: 36415; 80053; 85049; 85610; 85730

== ENCOUNTER 2024-01-15 12:00 | Day surgery (SDC) | payer BC, SELFPAY ==
[2023-12-22 15:49] VITALS: BMI 20.3
[2024-01-15] VITALS (12 sets, daily range): BP systolic 96–125; BP diastolic 62–78; PULSE 84–92; RESP 11–25; TEMP 36.3–37.3; O2SAT 90–98; BMI 20.3
--- NOTE | 2024-01-15 | PATH_ITS ---
[facility] Accession Number: [id number] No. of containers..01 Tissue . 01 Material submitted: . bone - LEFT POSTERIOR PELVIC BONE . 01 Diagnosis: A. BONE, LEFT POSTERIOR PELVIC, BIOPSY: Bone with trilineage hematopoiesis. Negative for metastatic caricnoma, see comment. - B. CLOT AGGREGATE: Blood clot with marrow elements demonstrating trilineage hematopoiesis. Negative for metastatic carcinoma, see comment. [facility] 01/19/2024 1816 Local . 01 Comment: In order to more fully characterize this process, immunohistochemical stains were indicated and performed on blocks A and B and showed NEGATIVE staining for MARU. As part of ongoing quality control tech, parts A and B were reviewed by Dr. Bessie Thompson, who agrees with the interpretation. Technical Note: The immunohistochemical stains reported were performed at [facility] ([address], [facility] [address]). They were developed and their performance characteristics determined by [employer] They have not been cleared or approved by the U.S. Food and Drug Administration, although such approval is not required for analyte-specific reagents of this type. . 01 Electronically signed: . Cricket Sánchez MD, Pathologist NPI- [id number] . 01 Gross description: . Received in formalin with two identifiers and no site on jar, is a frazier, friable fragment of osseous tissue 0.8 x 0.3 x 0.2 cm. Also within the container are multiple fragments of hemorrhagic material aggregating to 1.5 x 0.4 x 0.1 cm. Submitted entirely as follows: A1: Bone fragment following decalcification in [employer]. A2: Filtered fragments of hemorrhagic material. ([id number]) /JON 01/16/20246 Local . 01 Pathologist provided ICD-10: M89.9 . 01 CPT . 078645, 840177, G07427, 607781 Specimen Comment: A courtesy copy of this report has been sent to [phone] Performed at: [address] [address], [place], [place] [id number] MD Luis David MD Phone: [phone]
--- NOTE | 2024-01-15 12:03 | DI.CT.S_ITS ---
PROCEDURE: CT BIOPSY BONE DEEP Sedation analgesia for 20 minutes. INDICATIONS: Pelvic bone biopsy:evaluate bone lesions seen on prior imagi TECHNIQUE: The indications, alternatives, benefits, risks, and possible complications of the procedure were communicated to the patient. Informed written consent from the patient was obtained and placed in the chart. Continuous EKG and hemodynamic monitoring was started by trained personnel. The patient was brought to the CT suite and secretary administrative assistant spiral CT imaging was performed with localization grid. The appropriate site for percutaneous access to the biopsy target was marked, was prepped and draped sterilely, and was infused with local anaesthesia. Under CT guidance, a core biopsy trocar and needle set was advanced to the biopsy target, and specimen(s) were obtained. The trocar and needle were then removed, and the patient was sent for post-procedure monitoring. COMPARISON: [facility], CT, CT CERVICAL SPINE WO CON, 12/23/2023, 11:14. FINDINGS: Biopsy site: Left iliac Needle: 18 gauge biopsy needle with introducer trocar. Number of passes: 1 Medications: 1% lidocaine for local anaesthesia. IV Fentanyl and Versed for conscious sedation for 20 minutes (see nursing record). Complications: None. IMPRESSION: Successful CT-guided biopsy of left iliac bone lesion . Dictated by: Dhara Whitley M.D. on 01/15/2024 at 14:21 Approved by: Dhara Whitley M.D. on 01/15/2024 at 14:21
[2024-01-15] MEDS: LACTATED RINGERS 1,000 ML 42 ML IV (12:45)
[2024-01-15] MEDS: fentaNYL 100 MCG/2 ML INJ 50 MCG IV ×2 (13:32→13:45)
[2024-01-15] MEDS: MIDAZOLAM 2 MG/2 ML VIAL 1 MG IV (13:32)
== END 2024-01-15 15:52 | disposition home or self-care (01) ==
LOC: DI 12:01 → OR 12:06
PROVIDERS: PCP Physician Assistant; Referring Provider Physician Assistant; Visit Provider Physician Assistant
DX: M89.9 Disorder of bone, unspecified (principal)
CPT/HCPCS: 20225; 77012; J2250; J3010

== ENCOUNTER → 2024-01-18 10:02 | Outpatient (CLI) | payer BC, SELFPAY ==
[2023-12-22 15:49] VITALS: BMI 20.3
[2024-01-19 15:58] LABS: Alanine Aminotransferase 17 IU/L (<50); Albumin 3.2 g/dL (3.5-5.0); Alkaline Phosphatase 73 U/L (38-126); Aspartate Aminotransferase 19 IU/L (17-59); BUN Creatinine Ratio 23.3 (6-22); Bilirubin Total 0.6 mg/dL (0.2-1.3); Blood Urea Nitrogen 17 mg/dL (9-20); Calcium 9.7 mg/dL (8.4-10.2); Carbon Dioxide 31 mmol/L (22-32); Chloride 101 mmol/L (98-107); Estimated Glomerular Filt Rate > 60 mL/min (>60); Globulin 3.1 g/dL (1.7-4.1); Glucose 105 mg/dL (70-100); HEMOLYSIS < 15 (0-50); Potassium 4.5 mmol/L (3.4-5.1); Sodium 136 mmol/L (137-145); Total Protein 6.3 g/dL (6.3-8.2)
== END ==
PROVIDERS: PCP Physician Assistant; Visit Provider Physician Assistant
DX: Z79.899 Other long term (current) drug therapy (principal)
CPT/HCPCS: 80053

== ENCOUNTER → 2024-02-03 11:51 | Outpatient (CLI) | payer BC, SELFPAY ==
[2024-02-03 09:07] VITALS: BMI 20.3
[2024-02-03 19:52] LABS: Alanine Aminotransferase 13 IU/L (<50); Albumin 3.1 g/dL (3.5-5.0); Albumin Globulin Ratio 1.2 (1.0-2.8); Aspartate Aminotransferase 17 IU/L (17-59); BUN Creatinine Ratio 13.8 (6-22); Blood Urea Nitrogen 9 mg/dL (9-20); Calcium 9.3 mg/dL (8.4-10.2); Carbon Dioxide 28 mmol/L (22-32); Estimated Glomerular Filt Rate > 60 mL/min (>60); Globulin 2.6 g/dL (1.7-4.1); Glucose 59 mg/dL (70-100); HEMOLYSIS < 15 (0-50); Potassium 4.1 mmol/L (3.4-5.1); Sodium 136 mmol/L (137-145); Total Protein 5.7 g/dL (6.3-8.2)
[2024-02-03 19:54] LABS: Alkaline Phosphatase 70 U/L (38-126); Bilirubin Total 0.8 mg/dL (0.2-1.3); Chloride 101 mmol/L (98-107)
[2024-02-03 20:06] LABS: Troponin I < 0.012 ng/mL (0.01-0.034)
[2024-02-04 21:51] LABS: HIV 1 & 2 Ab/Ag 4th Gen Combo NEGATIVE (NEGATIVE); Hep C Virus Ab w/Reflex Quant NEGATIVE s/c (NEGATIVE)
== END ==
PROVIDERS: PCP Physician Assistant; Visit Provider Physician Assistant
DX: Z11.59 Encounter for screening for other viral diseases (principal); Z79.899 Other long term (current) drug therapy; R00.2 Palpitations; R94.31 Abnormal electrocardiogram [ECG] [EKG]; Z11.4 Encounter for screening for human immunodeficiency virus [HIV]; Z12.11 Encounter for screening for malignant neoplasm of colon
CPT/HCPCS: 80053; 84484; 86803; 87389

== ENCOUNTER 2024-03-24 14:57 | Emergency (ER) | payer BC, MEDICAID, SELFPAY ==
[2024-02-03 09:07] VITALS: BMI 20.3
[2024-03-24] VITALS (31 sets, daily range): BP systolic 97–146; BP diastolic 60–81; PULSE 82–98; RESP 12–24; TEMP 36.9; O2SAT 91–96; BMI 20.3
--- NOTE | 2024-03-24 15:27 | PC.NURSE ---
patient had pressure applied manually until a small wt was obtained. Wt placed on groin above surgical incision. Pt complains of tenderness above surgical site in abd
--- NOTE | 2024-03-24 15:48 | DI.US.S_ITS ---
PROCEDURE: US ABDOMEN LIMITED INDICATIONS: RIGHT GROIN CATHERIZATION TODAY ?CLOT VS ANEURYSM TECHNIQUE: Real-time focused scanning was performed of the abdomen, with image documentation. COMPARISON: None. FINDINGS: There is a nonvascular fluid collection in the right groin measuring 13.5 x 4.5 x 3.5 centimeter. The proximal and mid common femoral artery is not well visualized due to the fluid collection. The distal common femoral artery demonstrates no abnormality. IMPRESSION: There is a nonvascular fluid collection in the right groin measuring 13.5 x 4.5 x 3.5 centimeters. This has an appearance of a hematoma rather than a pseudoaneurysm. However, this region obscures the common femoral artery in the proximal and mid segments. Close monitoring hemoglobin should be considered, and if there is any significant drop, a multiphasic CTA of the pelvis could be ordered to evaluate the vessels and presumed hematoma. Dictated by: Alvino Cole M.D. on 03/24/2024 at 16:44 Approved by: Alvino Cole M.D. on 03/24/2024 at 16:47
--- NOTE | 2024-03-24 17:27 | PC.NURSE ---
Patient complains of pain in the area around the incision site. The wt bag was placed on the pt groin area.
[2024-03-24] MEDS: SODIUM CHLORIDE 0.9% 1,000 ML 1000 ML IV (17:48)
--- NOTE | 2024-03-24 18:50 | ED.RECABL ---
HPI - Recheck/Abnormal Lab/Rx General Chief Complaint: Recheck/Abnormal Lab/Rx Stated Complaint: Bleeding Time Seen by Provider: 03/24/24 15:19 Source: patient Mode of arrival: Wheelchair History of Present Illness HPI narrative: 48-year-old gentleman with a prior history of presumed congestive heart failure underwent cardiac catheterization as an outpatient today and discovered that he had pulmonary hypertension congestive heart failure. He was discharged home stable condition and while walking around the grocery store noted that he had warmth running down the front of his right leg. Right groin was the access site for his cardiac catheterization. He had moderate amount of bleeding and comes in to the emergency department. The bleeding is controlled with compression in the 5 lb weight is kept on the groin. Patient is not complaining of pain, dyspnea or palpitations. Related Data Previous Rx's Medication Instructions Recorded furosemide 20 mg tablet (Lasix) 20 mg PO DAILY #30 tabs 12/24/23 lisinopril 2.5 mg tablet 2.5 mg PO DAILY #30 tabs 12/24/23 metoprolol succinate 25 mg 12.5 mg (1/2 x 25 mg) PO DAILY #30 12/24/23 tablet,extended release 24 hr tabs potassium chloride 10 mEq 10 meq PO DAILY #30 caps 12/24/23 capsule,extended release tiotropium bromide 1.25 2 puff inhalation DAILY #4 grams 12/24/23 mcg/actuation mist for inhalation (Spiriva Respimat) oxycodone-acetaminophen 5 mg-325 1 tab PO Q6H PRN pain #10 tabs 03/24/24 mg tablet Allergies Allergy/AdvReac Type Severity Reaction Status Date / Time No Known Drug Allergies Allergy Verified 02/10/24 16:06 Review of Systems Review of Systems Narrative: Pertinent positive and negative findings as per HPI Patient History Medical History Centrilobular emphysema Social History household members: significant other Smoking Status: Former smoker alcohol intake: current Smoking Status: Former smoker tobacco type: cigarettes alcohol intake frequency: 3 or more drinks per day Alcohol type: beer Substance Use Type: marijuana Exam Initial Vital Signs Initial Vital Signs: Vital Signs Pulse Rate 91 H 03/24/24 15:01 Blood Pressure 117/69 03/24/24 15:01 Pulse Oximetry 92 03/24/24 15:01 General: Healthy appearing, in no acute distress. Able to give a complete and coherent history. Well-nourished well-developed HEENT: Moist mucousNeck: No JVD, supple Respiratory: Lungs are clear to auscultation, no wheezing no rales no rhonchi. Full and symmetrical air movement Cardiac: Regular rate and rhythm no murmurs no bruits Abdomen: Soft, nontender, good bowel tones, no flank pain Groin: Puncture site is actually no longer actively bleeding. There is a hematoma that is palpable underneath. Minimal tenderness. No vascular compromise distal Skin: Warm and dry, no rashes Neurologic: Grossly neurologically intact with no obvious asymmetries or abnormalities Extremities: No trauma, well perfused Psych: Cooperative, appropriate insight and affect Course Orders Ordered: ED Orders 03/24/24 15:48 US abdomen limited Stat Discontinued Medications Sodium Chloride (Normal Saline 0.9%) 1,000 mls @ 1,000 mls/hr IV BOLUS ONE Stop: 03/24/24 18:45 Last Admin: 03/24/24 17:48 Dose: 1,000 mls/hr Documented By: SCARLET Oxycodone/Acetaminophen (Oxycodone/Acetaminophen 5/325 Tablet) 1 tab PO NOW ONE Stop: 03/24/24 17:47 Last Admin: 03/24/24 18:15 Dose: Not Given Documented By: SCARLET Vital Signs Vital signs: Vital Signs - 8 hr 03/24/24 15:01 03/24/24 15:01 03/24/24 15:05 Temperature Pulse Rate 91 H Pulse Rate [Orthostatic Lying] Pulse Rate [Orthostatic Sitting] Pulse Rate [Orthostatic Standing] Respiratory Rate Blood Pressure 117/69 129/81 Blood Pressure [Orthostatic Lying] Blood Pressure [Orthostatic Sitting] Blood Pressure [Orthostatic Standing] Pulse Oximetry 92 Oxygen Delivery Method 03/24/24 15:05 03/24/24 15:10 03/24/24 15:10 Temperature 98.4 F Pulse Rate 94 H 89 95 H Pulse Rate [Orthostatic Lying] Pulse Rate [Orthostatic Sitting] Pulse Rate [Orthostatic Standing] Respiratory Rate 17 13 21 Blood Pressure 129/81 Blood Pressure [Orthostatic Lying] Blood Pressure [Orthostatic Sitting] Blood Pressure [Orthostatic Standing] Pulse Oximetry 95 96 94 Oxygen Delivery Method Room Air 03/24/24 15:10 03/24/24 15:15 03/24/24 15:15 Temperature Pulse Rate 93 H Pulse Rate [Orthostatic Lying] Pulse Rate [Orthostatic Sitting] Pulse Rate [Orthostatic Standing] Respiratory Rate 14 Blood Pressure 146/73 H 146/76 H Blood Pressure [Orthostatic Lying] Blood Pressure [Orthostatic Sitting] Blood Pressure [Orthostatic Standing] Pulse Oximetry 95 Oxygen Delivery Method 03/24/24 15:20 03/24/24 15:20 03/24/24 15:25 Temperature Pulse Rate 90 88 Pulse Rate [Orthostatic Lying] Pulse Rate [Orthostatic Sitting] Pulse Rate [Orthostatic Standing] Respiratory Rate 24 14 Blood Pressure 118/73 Blood Pressure [Orthostatic Lying] Blood Pressure [Orthostatic Sitting] Blood Pressure [Orthostatic Standing] Pulse Oximetry 93 96 Oxygen Delivery Method 03/24/24 15:25 03/24/24 15:30 03/24/24 15:30 Temperature Pulse Rate 84 Pulse Rate [Orthostatic Lying] Pulse Rate [Orthostatic Sitting] Pulse Rate [Orthostatic Standing] Respiratory Rate 12 Blood Pressure 120/76 97/64 Blood Pressure [Orthostatic Lying] Blood Pressure [Orthostatic Sitting] Blood Pressure [Orthostatic Standing] Pulse Oximetry 92 Oxygen Delivery Method 03/24/24 15:35 03/24/24 15:35 03/24/24 15:40 Temperature Pulse Rate 87 85 Pulse Rate [Orthostatic Lying] Pulse Rate [Orthostatic Sitting] Pulse Rate [Orthostatic Standing] Respiratory Rate 17 18 Blood Pressure 110/77 Blood Pressure [Orthostatic Lying] Blood Pressure [Orthostatic Sitting] Blood Pressure [Orthostatic Standing] Pulse Oximetry 92 92 Oxygen Delivery Method 03/24/24 15:40 03/24/24 15:45 03/24/24 15:45 Temperature Pulse Rate 83 Pulse Rate [Orthostatic Lying] Pulse Rate [Orthostatic Sitting] Pulse Rate [Orthostatic Standing] Respiratory Rate 19 Blood Pressure 110/75 97/70 Blood Pressure [Orthostatic Lying] Blood Pressure [Orthostatic Sitting] Blood Pressure [Orthostatic Standing] Pulse Oximetry 92 Oxygen Delivery Method 03/24/24 15:50 03/24/24 15:50 03/24/24 15:55 Temperature Pulse Rate 85 83 Pulse Rate [Orthostatic Lying] Pulse Rate [Orthostatic Sitting] Pulse Rate [Orthostatic Standing] Respiratory Rate 18 13 Blood Pressure 104/72 Blood Pressure [Orthostatic Lying] Blood Pressure [Orthostatic Sitting] Blood Pressure [Orthostatic Standing] Pulse Oximetry 92 94 Oxygen Delivery Method 03/24/24 15:55 03/24/24 16:00 03/24/24 16:00 Temperature Pulse Rate 84 Pulse Rate [Orthostatic Lying] Pulse Rate [Orthostatic Sitting] Pulse Rate [Orthostatic Standing] Respiratory Rate 19 Blood Pressure 103/60 111/66 Blood Pressure [Orthostatic Lying] Blood Pressure [Orthostatic Sitting] Blood Pressure [Orthostatic Standing] Pulse Oximetry 91 Oxygen Delivery Method 03/24/24 16:05 03/24/24 16:05 03/24/24 16:10 Temperature Pulse Rate 90 89 Pulse Rate [Orthostatic Lying] Pulse Rate [Orthostatic Sitting] Pulse Rate [Orthostatic Standing] Respiratory Rate 16 19 Blood Pressure 119/72 Blood Pressure [Orthostatic Lying] Blood Pressure [Orthostatic Sitting] Blood Pressure [Orthostatic Standing] Pulse Oximetry 93 94 Oxygen Delivery Method 03/24/24 16:10 03/24/24 16:15 03/24/24 16:15 Temperature Pulse Rate 90 Pulse Rate [Orthostatic Lying] Pulse Rate [Orthostatic Sitting] Pulse Rate [Orthostatic Standing] Respiratory Rate 12 Blood Pressure 117/74 104/64 Blood Pressure [Orthostatic Lying] Blood Pressure [Orthostatic Sitting] Blood Pressure [Orthostatic Standing] Pulse Oximetry 93 Oxygen Delivery Method 03/24/24 16:20 03/24/24 16:20 03/24/24 16:25 Temperature Pulse Rate 89 87 Pulse Rate [Orthostatic Lying] Pulse Rate [Orthostatic Sitting] Pulse Rate [Orthostatic Standing] Respiratory Rate 20 18 Blood Pressure 109/67 Blood Pressure [Orthostatic Lying] Blood Pressure [Orthostatic Sitting] Blood Pressure [Orthostatic Standing] Pulse Oximetry 93 95 Oxygen Delivery Method 03/24/24 16:25 03/24/24 16:30 03/24/24 16:30 Temperature Pulse Rate 86 Pulse Rate [Orthostatic Lying] Pulse Rate [Orthostatic Sitting] Pulse Rate [Orthostatic Standing] Respiratory Rate 16 Blood Pressure 121/71 110/68 Blood Pressure [Orthostatic Lying] Blood Pressure [Orthostatic Sitting] Blood Pressure [Orthostatic Standing] Pulse Oximetry 93 Oxygen Delivery Method 03/24/24 16:35 03/24/24 16:35 03/24/24 16:40 Temperature Pulse Rate 88 89 Pulse Rate [Orthostatic Lying] Pulse Rate [Orthostatic Sitting] Pulse Rate [Orthostatic Standing] Respiratory Rate 16 19 Blood Pressure 130/73 Blood Pressure [Orthostatic Lying] Blood Pressure [Orthostatic Sitting] Blood Pressure [Orthostatic Standing] Pulse Oximetry 94 94 Oxygen Delivery Method 03/24/24 16:40 03/24/24 16:44 03/24/24 16:44 Temperature Pulse Rate 93 H Pulse Rate [Orthostatic Lying] Pulse Rate [Orthostatic Sitting] Pulse Rate [Orthostatic Standing] Respiratory Rate 24 Blood Pressure 113/73 124/80 Blood Pressure [Orthostatic Lying] Blood Pressure [Orthostatic Sitting] Blood Pressure [Orthostatic Standing] Pulse Oximetry 93 Oxygen Delivery Method 03/24/24 16:48 03/24/24 16:48 03/24/24 16:49 Temperature Pulse Rate 95 H 94 H Pulse Rate [Orthostatic Lying] Pulse Rate [Orthostatic Sitting] Pulse Rate [Orthostatic Standing] Respiratory Rate 24 22 Blood Pressure 133/78 Blood Pressure [Orthostatic Lying] Blood Pressure [Orthostatic Sitting] Blood Pressure [Orthostatic Standing] Pulse Oximetry Oxygen Delivery Method 03/24/24 16:49 03/24/24 16:50 03/24/24 17:00 Temperature Pulse Rate 83 Pulse Rate [Orthostatic Lying] 92 H Pulse Rate [Orthostatic Sitting] 98 H Pulse Rate [Orthostatic Standing] 96 H Respiratory Rate 24 Blood Pressure 120/67 Blood Pressure [Orthostatic Lying] 124/80 Blood Pressure [Orthostatic Sitting] 141/81 H Blood Pressure [Orthostatic Standing] 124/74 Pulse Oximetry Oxygen Delivery Method 03/24/24 17:00 Temperature Pulse Rate Pulse Rate [Orthostatic Lying] Pulse Rate [Orthostatic Sitting] Pulse Rate [Orthostatic Standing] Respiratory Rate Blood Pressure 125/73 Blood Pressure [Orthostatic Lying] Blood Pressure [Orthostatic Sitting] Blood Pressure [Orthostatic Standing] Pulse Oximetry Oxygen Delivery Method MDM - Recheck/Abnormal Lab/Rx MDM Narrative Medical decision making narrative: CC: Postoperative bleeding Complicating co-morbidities: Had outpatient cardiac catheterization earlier today Data collected from: patient Medical records reviewed: Notes from [facility] regarding cardiac catheterization are reviewed Differential considered: Arterial bleeding, venous bleeding, Exam documented above, pertinent findings include: Patient is alert and appropriate. Non painful bleeding. Blade bleeding has been controlled. He has a hematoma to the groin. Imaging studies independently reviewed: PROCEDURE: US ABDOMEN LIMITED INDICATIONS: RIGHT GROIN CATHERIZATION TODAY ?CLOT VS ANEURYSM TECHNIQUE: Real-time focused scanning was performed of the abdomen, with image documentation. COMPARISON: None. FINDINGS: There is a nonvascular fluid collection in the right groin measuring 13.5 x 4.5 x 3.5 centimeter. The proximal and mid common femoral artery is not well visualized due to the fluid collection. The distal common femoral artery demonstrates no abnormality. IMPRESSION: There is a nonvascular fluid collection in the right groin measuring 13.5 x 4.5 x 3.5 centimeters. This has an appearance of a hematoma rather than a pseudoaneurysm. However, this region obscures the common femoral artery in the proximal and mid segments. Close monitoring hemoglobin should be considered, and if there is any significant drop, a multiphasic CTA of the pelvis could be ordered to evaluate the vessels and presumed hematoma. Dictated by: Alvino Cole M.D. on 03/24/2024 at 16:44 Consultations: Dr. Bai is notified of the complication. He recommended ultrasound as above. A minimum of 2 hours of observation. He will follow up with the patient Treatments: Pressure to the right groin, L of fluid Discussion: 48-year-old gentleman with post cath bleeding from the right groin puncture site. Bleeding is now controlled. He does have a large hematoma tracking upward from the site that does not appear to be vascular nor expanding. Explained to him the large bruise that he is going to see tracking all the way down his leg is this blood is reconnected. After a L of fluid and multiple hours of compression he is comfortable in moving around. There was no recurrent bleeding. Encouraged him to not be too active this evening and wait till at least the afternoon both before returning to [place] tomorrow afternoon. He will follow up with Dr. Bai scheduled. He is safe for discharge Discharge Plan Departure Patient Disposition: Home Clinical Impression: Post-operative haemorrhage Qualifiers: Surgical complication system/body Area: circulatory system Procedure type: cardiac catheterization Qualified Code(s): I97.610 - Postprocedural hemorrhage of a circulatory system organ or structure following a cardiac catheterization Activity Restrictions/Additional Instructions: Thank you for coming in today Sometimes these catheter sites do have some bleeding afterward. Based on the type of bleeding I suspect that this was venous rather than arterial. The ultrasound that we did showed a 13 x 5 x 4 cm area of hematoma. This is about the amount of blood that you would lose if you donated a pt of blood. This is going to spread out throughout your groin and down anterior leg with beautiful colors to be experienced over the next month. I would recommend minimal activity over the next day or 2 just to make sure that we do not dislodge the clot it has now formed. If Tylenol is inadequate for pain control you can fill a prescription for Percocet. This is a narcotic and will cause constipation, do take it with a stool softener I would [place] 24 hours make sure that there was no recurrent bleeding. If you do have additional issues please feel free to return. Please do keep your scheduled follow up appointment with the regional maintenance manager Prescriptions: New oxycodone-acetaminophen 5-325 mg tablet 1 tab PO Q6H PRN (Reason: pain) Qty: 10 0RF No Action furosemide [Lasix] 20 mg tablet 20 mg PO DAILY Qty: 30 2RF metoprolol succinate 25 mg tablet extended release 24 hr 12.5 mg PO DAILY Qty: 30 2RF lisinopril 2.5 mg tablet 2.5 mg PO DAILY Qty: 30 2RF potassium chloride 10 mEq capsule, extended release 10 meq PO DAILY Qty: 30 2RF Spiriva Respimat 1.25 mcg/actuation mist 2 puff inhalation DAILY Qty: 4 2RF Referrals: Imelda Ortez PA-C [Primary Care Provider] - Stand Alone Forms: Patient Portal/API/Survey
--- NOTE | 2024-03-24 19:37 | PC.NURSE ---
bleeding is controlled.
== END 2024-03-24 19:41 | disposition home or self-care (01) ==
PROVIDERS: Emergency Provider Emergency Medicine; PCP Physician Assistant
DX: I97.610 Postprocedural hemorrhage of a circulatory system organ or structure following a cardiac catheterization (principal)
CPT/HCPCS: 76705; 96360; 96361; 99283; 99284

== ENCOUNTER → 2024-05-12 13:10 | Outpatient (CLI) | payer BC, SELFPAY ==
[2024-02-03 09:07] VITALS: BMI 20.3
[2024-05-12 14:36] LABS: Alanine Aminotransferase 22 IU/L (<50); Albumin 3.4 g/dL (3.5-5.0); Albumin Globulin Ratio 1.2 (1.0-2.8); Alkaline Phosphatase 88 U/L (38-126); Aspartate Aminotransferase 22 IU/L (17-59); BUN Creatinine Ratio 11.9 (6-22); Bilirubin Total 0.6 mg/dL (0.2-1.3); Blood Urea Nitrogen 8 mg/dL (9-20); Calcium 9.5 mg/dL (8.4-10.2); Carbon Dioxide 29 mmol/L (22-32); Chloride 101 mmol/L (98-107); Estimated Glomerular Filt Rate > 60 mL/min (>60); Globulin 2.8 g/dL (1.7-4.1); Glucose 101 mg/dL (70-100); HEMOLYSIS < 15 (0-50); Magnesium 1.7 mg/dL (1.6-2.3); Potassium 4.7 mmol/L (3.4-5.1); Sodium 135 mmol/L (137-145); Total Protein 6.2 g/dL (6.3-8.2)
== END ==
LOC: LAB 13:10
PROVIDERS: PCP Physician Assistant; Referring Provider Physician Assistant; Visit Provider Physician Assistant
DX: Z79.899 Other long term (current) drug therapy (principal); Z87.19 Personal history of other diseases of the digestive system
CPT/HCPCS: 36415; 80053; 82784; 83516; 83735

== ENCOUNTER → 2024-07-22 11:38 | Outpatient (CLI) | payer OTHER, SELFPAY ==
[2024-02-03 09:07] VITALS: BMI 20.3
[2024-07-22 13:07] LABS: Alanine Aminotransferase 16 IU/L (<50); Albumin 3.2 g/dL (3.5-5.0); Albumin Globulin Ratio 1.1 (1.0-2.8); Alkaline Phosphatase 65 U/L (38-126); Aspartate Aminotransferase 15 IU/L (17-59); BUN Creatinine Ratio 18.2 (6-22); Bilirubin Total 0.5 mg/dL (0.2-1.3); Blood Urea Nitrogen 12 mg/dL (9-20); Calcium 9.1 mg/dL (8.4-10.2); Carbon Dioxide 28 mmol/L (22-32); Chloride 101 mmol/L (98-107); Estimated Glomerular Filt Rate > 60 mL/min (>60); Globulin 2.9 g/dL (1.7-4.1); Glucose 95 mg/dL (70-100); HEMOLYSIS < 15 (0-50); Potassium 4.8 mmol/L (3.4-5.1); Sodium 137 mmol/L (137-145); Total Protein 6.1 g/dL (6.3-8.2)
--- NOTE | 2024-07-22 14:00 | DI.US.S_ITS ---
PROCEDURE: US ABDOMEN LIMITED INDICATIONS: ETOH ABUSE. CIRRHOSIS SCREENING. TECHNIQUE: Real-time scanning was performed of the abdominal and retroperitoneal organs, with image documentation. COMPARISON: [facility], US, US ABDOMEN LIMITED, 03/24/2024, 16:06. FINDINGS: Liver: Liver is normal in size and homogeneous in echotexture, diffusely hip hyperechoic consistent with fatty infiltration. Gallbladder: No gallstones. No wall thickening. No pericholecystic edema. Negative sonographic Echavarria's sign. Biliary ducts: Intrahepatic bile ducts are non-dilated. Extrahepatic bile duct caliber measures 3.1 mm. Normal is 6-7 mm or less in diameter, or 10 mm or less post-cholecystectomy. Pancreas: Visualized portions of the pancreas are sonographically normal. Miscellaneous: No free abdominal fluid. IMPRESSION: Moderate fatty infiltration within the liver, no evidence of mass or biliary distension found. The liver and spleen do not appear enlarged and no ascites is present. Dictated by: Frankie Merlos M.D. on 07/22/2024 at 15:29 Approved by: Frankie Merlos M.D. on 07/22/2024 at 15:31
== END ==
PROVIDERS: PCP Physician Assistant; Referring Provider Specialist; Visit Provider Specialist
DX: Z79.899 Other long term (current) drug therapy (principal); K76.0 Fatty (change of) liver, not elsewhere classified
CPT/HCPCS: 36415; 76705; 80053

== ENCOUNTER → 2025-01-04 09:52 | Outpatient (CLI) | payer OTHER, SELFPAY ==
[2024-10-03 09:03] VITALS: BMI 20.3
[2025-01-04 19:49] LABS: Add Manual Diff / Slide Review NO; Hematocrit 50.1 % (41-53); Hemoglobin 16.9 g/dL (13.5-17.5); Lymphocytes Absolute Auto 1300 /uL (1100-4500); Mean Corpuscular HGB Conc 33.8 % (30-36); Mean Corpuscular Hemoglobin 30.8 PG (26-34); Mean Corpuscular Volume 91.3 fL (80-100); Platelet Count 521 X10^3/uL (150-400)
[2025-01-04 20:17] LABS: Alanine Aminotransferase 11 IU/L (<50); Albumin 3.4 g/dL (3.5-5.0); Albumin Globulin Ratio 1.1 (1.0-2.8); Alkaline Phosphatase 92 U/L (38-126); Blood Urea Nitrogen 9 mg/dL (9-20); Calcium 9.0 mg/dL (8.4-10.2); Carbon Dioxide 27 mmol/L (22-32); Chloride 100 mmol/L (98-107); Cholesterol 162 mg/dL (140-199); Estimated Glomerular Filt Rate > 60 mL/min (>60); Globulin 3.0 g/dL (1.7-4.1); Glucose 106 mg/dL (70-99); HDL Cholesterol 36 mg/dL (40-60); HEMOLYSIS 19 (0-50); Potassium 4.5 mmol/L (3.4-5.1); Sodium 134 mmol/L (137-145); Total Protein 6.4 g/dL (6.3-8.2); Triglycerides 98 mg/dL (35-150)
== END ==
PROVIDERS: PCP Physician Assistant; Visit Provider Physician Assistant
DX: Z13.6 Encounter for screening for cardiovascular disorders (principal); Z79.899 Other long term (current) drug therapy; Z12.5 Encounter for screening for malignant neoplasm of prostate; Z01.812 Encounter for preprocedural laboratory examination
CPT/HCPCS: 80053; 80061; 85025; G0103

== ENCOUNTER → 2025-04-25 10:00 | Outpatient (CLI) | payer OTHER, SELFPAY ==
[2024-10-03 09:03] VITALS: BMI 20.3
[2025-04-25 19:10] LABS: Alanine Aminotransferase 15 IU/L (<50); Albumin 4.4 g/dL (3.5-5.0); Albumin Globulin Ratio 1.2 (1.0-2.8); Alkaline Phosphatase 106 U/L (38-126); Blood Urea Nitrogen 14 mg/dL (9-20); Calcium 9.9 mg/dL (8.4-10.2); Carbon Dioxide 26 mmol/L (22-32); Chloride 102 mmol/L (98-107); Estimated Glomerular Filt Rate > 60 mL/min (>60); Globulin 3.6 g/dL (1.7-4.1); Glucose 110 mg/dL (70-99); HEMOLYSIS 38 (0-50); Potassium 4.6 mmol/L (3.4-5.1); Sodium 139 mmol/L (137-145); Total Protein 8.0 g/dL (6.3-8.2)
[2025-04-25 19:24] LABS: Add Manual Diff / Slide Review NO; Hematocrit 48.1 % (41-53); Hemoglobin 16.2 g/dL (13.5-17.5); Lymphocytes Absolute Auto 1700 /uL (1100-4500); Mean Corpuscular HGB Conc 33.7 % (30-36); Mean Corpuscular Hemoglobin 29.0 PG (26-34); Mean Corpuscular Volume 86.1 fL (80-100); Platelet Count 344 X10^3/uL (150-400)
== END ==
PROVIDERS: PCP Physician Assistant; Visit Provider Physician Assistant
DX: Z79.899 Other long term (current) drug therapy (principal)
CPT/HCPCS: 80053; 85025